=== PATIENT | female | born 1925 | race Caucasian/White ===

== ENCOUNTER 2016-10-05 20:50 | Inpatient (IN) | payer MEDICARE ==
[~2016-10-05] VITALS: Ht 167.6 cm; Wt 59.0 kg
[2016-10-05] MEDS ORDERED: SODIUM CHLOR 0.9% 1000 ML INJ 1,000 ML IV SCH (21:05)
--- NOTE | 2016-10-05 21:11 | PD ---
HPI Chief Complaint: GI bleed Time Seen by Provider: 21:05 Travel History International Travel<30 days: No Contact w/Intl Traveler<30days: No History of Present Illness HPI The patient is an 89 year old female who presents to the [facility] emergency department with a history of GI bleed that she reports began on Tuesday. She reports that she had bleeding on Tuesday, Tuesday, and Tuesday, today she thought that the bleeding had resolved up until this evening when it recurred when she was at a banquet. The patient is currently visiting from out of town. She reports that she's had 2 prior GI bleeds related to diverticulosis. She reports that she last had a colonoscopy within the last year. She reports that she is anticoagulated related to a history of atrial fibrillation. She is on Coumadin 5 mg by mouth daily. She did not take it today per the recommendation of her senior dot net developer when she called regarding GI bleed. She reports that her last INR was done approximately 2 weeks ago and was 1.4. The patient was brought in by ambulance services with reportedly a normal blood pressure, blood glucose was 119 prior to arrival. She denies having any associated abdominal pain. She denies having any nausea or vomiting. The patient reports that there is some stool mixed in with the blood in the stool is formed. On review of systems, the patient denies any recent fevers, cough, congestion, neck pain, chest pain, shortness of breath, urinary symptoms, or neurologic symptoms. [facility] Past Medical History Narrative Medical The patient's past medical history is significant for hypertension, history of GI bleed, history of atrial fibrillation chronically anticoagulated on Coumadin , history of diverticulosis. The patient denies any prior history of peptic ulcer disease. The patient denies any history of hepatitis. 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 Social History Alcohol Use: Yes (occasional) Tobacco Use: No Substance Use: No Allergies-Medications (Allergen,Severity, Reaction): Coded Allergies: No Known Allergies (Unverified , 10/05/16) Reported Meds & Prescriptions Reported Meds & Active Scripts Active Reported Amlodipine (Amlodipine Besylate) 10 Mg Tab 10 Mg PO DAILY Losartan (Losartan Potassium) 25 Mg Tab 25 Mg PO DAILY Coumadin (Warfarin) 5 Mg Tab 5 Mg PO DAILY Review of Systems Except as stated in HPI: all other systems reviewed are Neg General / Constitutional: No: Fever Eyes: No: Visual changes HENT: No: Headaches Cardiovascular: No: Chest Pain or Discomfort Respiratory: No: Shortness of Breath Gastrointestinal: Positive: Diarrhea, Hematochezia, Changes in Bowel Habits, No: Nausea, Vomiting, Abdominal Pain, Hematemesis, Constipation, Indigestion, Loss of Appetite Genitourinary: No: Dysuria Musculoskeletal: No: Pain Skin: No Rash Neurologic: No: Weakness Psychiatric: No: Depression Endocrine: No: Polydipsia Hematologic/Lymphatic: No: Easy Bruising Physical Exam Narrative General: The patient is a well-developed well-nourished female in no acute distress. Head and Neck exam: Head is normocephalic atraumatic. Eyes: EOMI, pupils are equal round and reactive to light. Nose: Midline septum with pink mucous membranes Mouth: Dentition unremarkable. Moist mucus membranes. Posterior oropharynx is not erythematous. No tonsillar hypertrophy. Uvula midline. Airway patent. Neck: No palpable lymphadenopathy. No nuchal rigidity. No thyromegaly. Cardiovascular: Regular rate and rhythm without murmurs, gallops, or rubs. The patient is noted to have an occasional PVC on the monitor, however on telemetry the patient is otherwise noted to be in a sinus rhythm. Lungs: Clear to auscultation bilaterally. No wheezes, rhonchi, or rales. Abdomen: Soft, without tenderness to palpation in all 4 quadrants of the abdomen. No guarding, rebound, or rigidity. No tenderness on palpation of McBurney's point. Negative Pulido sign. Negative Boulder sign. Extremities: No clubbing or cyanosis, however the patient does have trace pedal edema. 2+ pulses in all 4 extremities. No calf tenderness on palpation. Back: No costovertebral angle tenderness to palpation. Neurologic Exam: Grossly nonfocal. Skin Exam: No rash noted. Intact skin that is warm and dry. RECTAL EXAM: No masses or tenderness, stool is bright red. Hemaprompt positive. Data Data Last Documented VS Vital Signs Date Time Temp Pulse Resp B/P Pulse Ox O2 Delivery O2 Flow Rate FiO2 6/27/17 21:27 97 Room Air 10/05/16:17 98.2 85 18 118/69 Orders Complete Blood Count With Diff (10/05/16 21:05) Comprehensive Metabolic Panel (10/05/16 21:05) Lipase (10/05/16 21:05) Prothrombin Time / Inr (Pt) (10/05/16 21:05) Act Partial Throm Time (Ptt) (10/05/16 21:05) Type And Screen (10/05/16 21:05) Red Blood Cells (Rbc) (10/05/16 21:05) Ecg Monitoring (10/05/16 21:05) Iv Access Insert/Monitor (10/05/16 21:05) Oximetry (10/05/16 21:05) Sodium Chlor 0.9% 1000 Ml Inj (Ns 1000 M (10/05/16 21:05) Sodium Chloride 0.9% Flush (Ns Flush) (10/05/16 21:15) Electrocardiogram (10/05/16 22:38) Labs Laboratory Tests Test 10/05/16 22:00 White Blood Count 6.8 TH/MM3 Red Blood Count 3.16 MIL/MM3 Hemoglobin 10.0 GM/DL Hematocrit 29.8 % Mean Corpuscular Volume 94.3 FL Mean Corpuscular Hemoglobin 31.6 PG Mean Corpuscular Hemoglobin 33.5 % Concent Red Cell Distribution Width 15.4 % Platelet Count 179 TH/MM3 Mean Platelet Volume 8.9 FL Neutrophils (%) (Auto) 61.7 % Lymphocytes (%) (Auto) 22.8 % Monocytes (%) (Auto) 9.9 % Eosinophils (%) (Auto) 4.5 % Basophils (%) (Auto) 1.1 % Neutrophils # (Auto) 4.2 TH/MM3 Lymphocytes # (Auto) 1.6 TH/MM3 Monocytes # (Auto) 0.7 TH/MM3 Eosinophils # (Auto) 0.3 TH/MM3 Basophils # (Auto) 0.1 TH/MM3 CBC Comment DIFF FINAL Differential Comment Prothrombin Time 23.0 SEC Prothromb Time International 2.0 RATIO Ratio Activated Partial 33.1 SEC Thromboplast Time Sodium Level 140 MEQ/L Potassium Level 3.6 MEQ/L Chloride Level 107 MEQ/L Carbon Dioxide Level 27.0 MEQ/L Anion Gap 6 MEQ/L Blood Urea Nitrogen 20 MG/DL Creatinine 0.49 MG/DL Estimat Glomerular Filtration 119 ML/MIN Rate Random Glucose 107 MG/DL Calcium Level 8.8 MG/DL Total Bilirubin 0.5 MG/DL Aspartate Amino Transf 18 U/L (AST/SGOT) Alanine Aminotransferase 19 U/L (ALT/SGPT) Alkaline Phosphatase 76 U/L Total Protein 5.7 GM/DL Albumin 3.3 GM/DL Lipase 225 U/L MDM Medical Decision Making Medical Screen Exam Complete: Yes Emergency Medical Condition: Yes Medical Record Reviewed: Yes Differential Diagnosis Diverticular bleed, versus AVM malformation bleed, versus peptic ulcer bleed Narrative Course During the course of the patients emergency department visit, the patients history, examination, and differential diagnosis were reviewed with the patient. The patient had IV access obtained and blood work sent for analysis. The patient was placed on a child monitor with oximetry and blood pressure monitoring. The patient was typed and crossmatched for blood administration if necessary, 2 units were placed on hold. The patient was initially provided normal saline at 125 mL per hour. The patients laboratory studies were reviewed and remarkable for a white count of 6.8, hemoglobin 10, platelets 179 with monocytes 9.9, eosinophils 4.5. CMP is remarkable for a BUN of 20, creatinine 0.49, glucose 107, albumin 3.3, lipase 225, PTT 23, INR 2.0, PTT 33.1. The patients results were discussed with the patient, including the plan of care. I explained that further testing and/ or monitoring is indicated based on the patients history, examination, and/ or laboratory findings. Therefore, I recommended admission for additional evaluation. The patient expressed understanding and was agreeable with this plan. The patient was admitted to the hospital in stable condition and sent to a bed under the care of the [facility] service. [facility] Point of Care Internal Pos. & Neg. Controls: Passed Fecal Specimen Occult Blood: Positive Physician Communication Physician Communication Patient's case will be discussed with Dr. Lutz for admission. Diagnosis Primary Impression: GI bleed Qualified Code: K92.2 - Gastrointestinal hemorrhage, unspecified gastrointestinal hemorrhage type Admitting Information Admitting Physician Requests: Admit Silvia Ward MD Oct 05, 2016 21:11
[2016-10-05] MEDS ORDERED: SODIUM CHLORIDE 0.9% FLUSH 10 ML FLUSH IVF PRN (21:15)
[2016-10-05 21:17] VITALS: BP 118/69; PULSE 85; RESP 18; TEMP 98.2; O2SAT 97
[2016-10-05 21:27] VITALS: O2SAT 97
[2016-10-05] MEDS ORDERED: AMLO10TA2 PO (21:35)
[2016-10-05] MEDS ORDERED: LOSA25TA PO (21:35)
[2016-10-05] MEDS ORDERED: COUM5TAB PO (21:35)
[2016-10-05 22:12] LABS: AUTOMATED NEUTROPHIL # 4.2 TH/MM3 (1.8-7.7); BASOPHIL # 0.1 TH/MM3 (0-0.2); BASOPHIL % 1.1 % (0.0-2.0); EOSINOPHIL # 0.3 TH/MM3 (0-0.4); EOSINOPHIL % 4.5 % (0.0-4.0); HEMATOCRIT 29.8 % (35.0-46.0); HEMO FLAGS DIFF FINAL; LYMPH % 22.8 % (9.0-44.0); LYMPHOCYTE # 1.6 TH/MM3 (1.0-4.8); MEAN CELL VOLUME 94.3 FL (80.0-100.0); MEAN CORPUSCULAR HEMOGLOBIN 31.6 PG (27.0-34.0); MEAN CORPUSCULAR HGB CONC 33.5 % (32.0-36.0); MONO % 9.9 % (0.0-8.0); NEUT % 61.7 % (16.0-70.0); PLATELET COUNT 179 TH/MM3 (150-450); RED BLOOD COUNT 3.16 MIL/MM3 (4.00-5.30); RED CELL DISTRIBUTION WIDTH 15.4 % (11.6-17.2); WHITE BLOOD COUNT 6.8 TH/MM3 (4.0-11.0)
[2016-10-05 22:26] LABS: ANION GAP 6 MEQ/L (5-15); AST (GOT) 18 U/L (15-37); BLOOD UREA NITROGEN 20 MG/DL (7-18); CHLORIDE 107 MEQ/L (98-107); GLOMERULAR FILTRATION RATE 119 ML/MIN (>89); POTASSIUM 3.6 MEQ/L (3.5-5.1); SODIUM (NA) 140 MEQ/L (136-145)
[2016-10-05 22:27] LABS: ALT (GPT) 19 U/L (10-53)
[2016-10-05 22:29] LABS: ALKALINE PHOSPHATASE 76 U/L (45-117); TOTAL BILIRUBIN ADULT 0.5 MG/DL (0.2-1.0)
[2016-10-05 22:33] LABS: APTT (PATIENT) 33.1 SEC (24.3-30.1)
[2016-10-05] MEDS ORDERED: SODIUM CHLORIDE 0.9% FLUSH 10 ML FLUSH IV FLUSH PRN (23:15)
[2016-10-05] MEDS ORDERED: NALOXONE HCL 0.4 MG/ML AMP IV PRN (23:15)
[2016-10-05 23:25] VITALS: BP 144/82; PULSE 81; RESP 18; O2SAT 93
[2016-10-06] VITALS (11 sets, daily range): BP systolic 98–145; BP diastolic 53–82; PULSE 73–92; RESP 14–20; TEMP 97.4–98.4; O2SAT 96–99
--- NOTE | 2016-10-06 04:06 | HHI.HP ---
[facility] Service [facility] Primary Care Physician No Primary Care Physician Admission Diagnosis GI bleed Diagnoses: Chief Complaint: rectal bleeding Travel History International Travel<30 Days: No Contact w/Intl Traveler <30 Da: No Traveled to Known Affected Are: No History of Present Illness Written by Alyx Aragon, acting as scribe for Dr. Lutz on 10/06/16 at 04:02. Here from [place] to be inducted into the [employer] [facility]. Has had rectal bleeding since Tuesday - multiple episodes Tuesday and Tuesday but it seemed to resolve Tuesday morning. Flew in Tuesday night and was doing well on Thursday 10/05 until she went to an [employer] banquet- when she stood up, her grandson noticed she had bled all over her skirt and the soaked the upholstery of the chair she was sitting on- a very large amount of dark and thick red blood. She is anticoagulated with Coumadin for atrial fibrillation with INR of 2.0 in ED. The last time she had similar bleeding was due to diverticular bleed. Not sure how bleeding was stopped. She has had three episodes of this. Has had bleeding on Xarelto, Eliquis, and Coumadin which is given for atrial fibrillation. The patient also has a PPM. She had some dizziness but no other symptoms other than the bleeding. . Review of Systems Except as stated in HPI: all other systems reviewed are Neg Past Family Social History Past Medical History Hypertension Osteomyelitis of left jaw in childhood Denies diabetes, copd/emphysema, CHF, CAD, liver problems, kidney problems, DVT , PE, CVA, seizures, thyroid problems, or cancers . Past Surgical History Permanent pacemaker placement Bilateral knee replacement Umbilical hernia repair Appendectomy Hysterectomy Bilateral carpal tunnel release Cardiac ablation for afib . Reported Medications Reported Meds & Active Scripts Active Reported Amlodipine (Amlodipine Besylate) 10 Mg Tab 10 Mg PO DAILY Losartan (Losartan Potassium) 25 Mg Tab 25 Mg PO DAILY Coumadin (Warfarin) 5 Mg Tab 5 Mg PO DAILY . Allergies: Coded Allergies: No Known Allergies (Unverified , 10/05/16) Active Ordered Medications Current Medications Sodium Chloride (NS 1000 ml Inj) 1,000 ml @ 125 mls/hr Q8H IV Last administered on 10/05/16 22:05; Start 10/05/16 at 21:05; Stop 10/06/16 at 05:04 Sodium Chloride (NS Flush) 2 ml UNSCH PRN IVF FLUSH AFTER USING IV ACCESS Last administered on 10/05/16 22:05; Start 10/05/16 at 21:15; Stop 10/05/16 at 23:16 ; Status DC Sodium Chloride (NS Flush) 2 ml UNSCH PRN IV FLUSH FLUSH AFTER USING IV ACCESS ; Start 10/05/16 at 23:15 Sodium Chloride (NS Flush) 2 ml BID IV FLUSH ; Start 10/06/16 at 09:00 Naloxone HCl (Narcan Inj) 0.4 mg UNSCH PRN IV SEE LABEL COMMENTS; Start at 23:15 . Family History Father lived to 97, healthy Mother without health problems . Social History Tobacco: remote history of smoking Alcohol: social occasional use Illicit Drugs: denies . Physical Exam Vital Signs Vital Signs Date Time Temp Pulse Resp B/P Pulse Ox O2 Delivery O2 Flow Rate FiO2 10/06/16 01:45 Room Air 10/06/16 01:40 88 10/06/16 00:32 79 10/06/16 00:05 97.6 92 16 145/82 99 10/05/16 23:25 81 18 144/82 93 Room Air 10/05/16 21:27 97 Room Air 10/05/16 21:17 98.2 85 18 118/69 97 Physical Exam GENERAL: This is a well-nourished, well-developed cognitively sharp 89-year-old female patient, in no apparent distress. SKIN: No rashes or lesions. Cool and dry. Superficial ecchymosis noted on right wrist. HEAD: Atraumatic. Normocephalic. EYES: No scleral icterus. No injection or drainage. ENT: Nose without bleeding, purulent drainage. NECK: Trachea midline. No JVD or lymphadenopathy. CARDIOVASCULAR: Regular rate and rhythm without murmurs, gallops, or rubs. RESPIRATORY: Clear to auscultation. Breath sounds equal bilaterally. No wheezes , rales, or rhonchi. GASTROINTESTINAL: Abdomen soft, non-tender, nondistended. No guarding. MUSCULOSKELETAL: Extremities without clubbing, cyanosis, or edema. No calf tenderness. NEUROLOGICAL: Awake and alert. Motor and sensory grossly within normal limits. Normal speech. . Laboratory Laboratory Tests Test 10/05/16 22:00 White Blood Count 6.8 Red Blood Count 3.16 Hemoglobin 10.0 Hematocrit 29.8 Mean Corpuscular Volume 94.3 Mean Corpuscular Hemoglobin 31.6 Mean Corpuscular Hemoglobin 33.5 Concent Red Cell Distribution Width 15.4 Platelet Count 179 Mean Platelet Volume 8.9 Neutrophils (%) (Auto) 61.7 Lymphocytes (%) (Auto) 22.8 Monocytes (%) (Auto) 9.9 Eosinophils (%) (Auto) 4.5 Basophils (%) (Auto) 1.1 Neutrophils # (Auto) 4.2 Lymphocytes # (Auto) 1.6 Monocytes # (Auto) 0.7 Eosinophils # (Auto) 0.3 Basophils # (Auto) 0.1 CBC Comment DIFF FINAL Differential Comment Prothrombin Time 23.0 Prothromb Time International 2.0 Ratio Activated Partial 33.1 Thromboplast Time Sodium Level 140 Potassium Level 3.6 Chloride Level 107 Carbon Dioxide Level 27.0 Anion Gap 6 Blood Urea Nitrogen 20 Creatinine 0.49 Estimat Glomerular Filtration 119 Rate Random Glucose 107 Calcium Level 8.8 Total Bilirubin 0.5 Aspartate Amino Transf 18 (AST/SGOT) Alanine Aminotransferase 19 (ALT/SGPT) Alkaline Phosphatase 76 Total Protein 5.7 Albumin 3.3 Lipase 225 Blood Type O POSITIVE Antibody Screen NEGATIVE Crossmatch Leukocyte-Reduced Red Blood Cells Blood Bank Comment Result Diagram: 10/05/16219910/05/162199 Assessment and Plan Problem List: (1) GI bleed ICD Code: K92.2 Status: Acute Assessment and Plan GI bleed - consult gastroenterology - NPO for GI procedures - Hgb 10.0, HCT 29.8 - states her home research advisor told her to stop coumadin and he'd see her upon return to [place] - closely monitor H&H - transfuse if indicated - continuous cardiac telemetry to monitor for arrhythmia - monitor vital signs q4h DVT prophylaxis - SCDs Patient supposed to fly home 10/07 . Discussed Condition With ER physician, RN, and patient Physician Certification 2 Midnight Certification Type: Admission for Inpatient Services Order for Inpatient Services The services are ordered in accordance with Medicare regulations or non- Medicare payer requirements, as applicable. In the case of services not specified as inpatient-only, they are appropriately provided as inpatient services in accordance with the 2-midnight benchmark. Estimated LOS (days): 3 days is the estimated time the patient will need to remain in the hospital, assuming treatment plan goals are met and no additional complications. Post-Hospital Plan: Home Problem Qualifiers (1) GI bleed: Qualified Code: K92.2 - Gastrointestinal hemorrhage, unspecified gastrointestinal hemorrhage type Alyx Aragon Oct 06, 2016 04:06
[2016-10-06 04:54] LABS: AUTOMATED NEUTROPHIL # 2.8 TH/MM3 (1.8-7.7); BASOPHIL # 0.1 TH/MM3 (0-0.2); BASOPHIL % 0.9 % (0.0-2.0); EOSINOPHIL # 0.5 TH/MM3 (0-0.4); EOSINOPHIL % 7.5 % (0.0-4.0); HEMATOCRIT 26.8 % (35.0-46.0); HEMO FLAGS DIFF FINAL; LYMPH % 34.4 % (9.0-44.0); LYMPHOCYTE # 2.1 TH/MM3 (1.0-4.8); MEAN CELL VOLUME 94.6 FL (80.0-100.0); MEAN CORPUSCULAR HEMOGLOBIN 31.7 PG (27.0-34.0); MEAN CORPUSCULAR HGB CONC 33.5 % (32.0-36.0); NEUT % 45.2 % (16.0-70.0); PLATELET COUNT 154 TH/MM3 (150-450); RED BLOOD COUNT 2.83 MIL/MM3 (4.00-5.30); RED CELL DISTRIBUTION WIDTH 15.2 % (11.6-17.2); WHITE BLOOD COUNT 6.2 TH/MM3 (4.0-11.0)
[2016-10-06 05:22] LABS: BICARBONATE 26.9 MEQ/L (21.0-32.0); POTASSIUM 4.1 MEQ/L (3.5-5.1)
[2016-10-06] MEDS: SODIUM CHLORIDE 0.9% FLUSH 10 ML FLUSH IV FLUSH SCH ×2 (09:00→20:17)
--- NOTE | 2016-10-06 10:23 | HHI.PR ---
Subjective Remarks Follow up for GI bleeding. The patient reports continued multiple episodes of dark red rectal bleeding overnight associated with flatus but no stools. Denies any abdominal pain, nausea/vomiting, or fevers/chills. She complains of some mild low back pain from the hospital bed. She states she has chronic low back pain at baseline however slightly worse this morning. Otherwise she has no other medical complaints including no lightheadedness, dizziness, chest pain, palpitations, or shortness of breath. She is requesting ice chips. Objective Vitals Vital Signs Date Time Temp Pulse Resp B/P Pulse Ox O2 Delivery O2 Flow Rate FiO2 10/06/16 06:19 Room Air 10/06/16 04:17 97.5 79 16 143/67 99 10/06/16 01:45 Room Air 10/06/16 01:40 88 10/06/16 00:32 79 10/06/16 00:05 97.6 92 16 145/82 99 10/05/16 23:25 81 18 144/82 93 Room Air 10/05/16 21:27 97 Room Air 10/05/16 21:17 98.2 85 18 118/69 97 I/O 10/05/16 10/05/16 10/05/16 10/06/16 10/06/16 10/06/16 07:00 15:00 23:00 07:00 15:00 23:00 Intake Total 982 ml Balance 982 ml Intake Oral 0 ml IV Total 982 ml # Voids 4 # Bowel Movements 1 Result Diagram: 10/06/16 0435 10/06/16 0435 Objective Remarks GENERAL: Well-developed well-nourished elderly female patient in [facility]. SKIN: Warm and dry. HEENT: Atraumatic. Normocephalic. Pupils equal and round. Mucous membranes pink and moist. NECK: Trachea midline. CARDIOVASCULAR: Regular rate and rhythm. No murmur appreciated. RESPIRATORY: No accessory muscle use. Clear to auscultation. Breath sounds equal bilaterally. GASTROINTESTINAL: Abdomen soft, non-tender, nondistended. Hepatic and splenic margins not palpable. MUSCULOSKELETAL: Extremities without clubbing, cyanosis, or edema. No obvious deformities. NEUROLOGICAL: Awake and alert. No obvious cranial nerve deficits. Motor grossly within normal limits. Normal speech. PSYCHIATRIC: Appropriate mood and affect; insight and judgment normal. Medications and IVs Current Medications Medications (Trade) Dose Ordered Sig/Jeffry Route Start Time Stop Time Status Last Admin (NS Flush) 2 ml UNSCH PRN IV FLUSH 10/05/16 23:15 (NS Flush) 2 ml BID IV FLUSH 10/06/16 09:00 10/06/16 09:00 (Narcan Inj) 0.4 mg UNSCH PRN IV 10/05/16 23:15 A/P Problem List: (1) GI bleed ICD Code: K92.2 Status: Acute Assessment and Plan 89-year-old female with history of hypertension, atrial fibrillation s/p pacer on Coumadin, prior diverticular GI bleed on anticoagulation, presents with a 4day history of rectal bleeding. The patient is visiting from [place] for a ceremony to be inducted into the [employer] of [facility], she is supposed to return to [place] on 10/07. GI bleed: on anticoagulation with Coumadin - she already discussed with her home numerical control tool programmer who instructed her to stop coumadin and he'd see her upon return to [place] - consulted gastroenterology - NPO for possible upcoming procedures - Hgb 10.0 --> 9.0 overnight - closely monitor serial H&H q6h - transfuse if Hgb < 8 or continues to have significant active bleeding - monitor on telemetry - start on IV protonix and IVF hydration - 1330hrs: hemoglobin dropped to 8.2 with continued active bleeding, will give 1u pRBC transfusion now, continue to monitor H&H Hypertension: BP fairly well controlled - hold patient's antihypertensives (losartan and amlodipine) with active GI bleeding - IV Vasotec prn SBP > 160, DBP > 100 Atrial Fibrillation on Coumadin: INR 2.0 - holding patient's coumadin with GI bleeding as above - patient has been instructed by her numerical control tool programmer to stop Coumadin until he sees her - monitor INR DVT prophylaxis- SCDs Problem Qualifiers (1) GI bleed: Qualified Code: K92.2 - Gastrointestinal hemorrhage, unspecified gastrointestinal hemorrhage type Alexandria Thornton PA-C Oct 06, 2016 10:23 am
[2016-10-06] MEDS: SODIUM CHLOR 0.9% 1000 ML INJ 1,000 ML IV SCH ×2 (10:30→22:25)
[2016-10-06] MEDS ORDERED: ENALAPRILAT 1.25 MG/ML VIAL IV PUSH PRN (10:30)
[2016-10-06] MEDS ORDERED: ONDANSETRON HCL 4 MG/2 ML VIAL IVP PRN (10:30)
[2016-10-06] MEDS ORDERED: ACETAMINOPHEN 325 MG TAB PO PRN (10:30)
[2016-10-06] MEDS: MORPHINE SULFATE 4 MG/ML INJ IV PRN ×2 (11:39→20:17)
[2016-10-06] MEDS: PANTOPRAZOLE SODIUM 40 MG VIAL IV PUSH SCH (12:09)
[2016-10-06 12:16] LABS: HEMATOCRIT 24.7 % (35.0-46.0); REVIEW FLAG FINAL
[2016-10-06] MEDS ORDERED: SODIUM CHLOR 0.9% 250 ML INJ 250 ML IV ONE (13:30)
--- NOTE | 2016-10-06 14:09 | PD.CONS ---
HPI History of Present Illness This is a 89 year old female patient with a history of diverticular bleeds who presented to the ER for evaluation of rectal bleeding. She is visiting from [place] to be inducted into the [employer]. She reports that she has had about 3-4 episodes of diverticular bleeds in the past. Usually, these occur about every 2 years, but her last episode was about 1 year ago. She had a colonoscopy at that time and was told that her bleeding was a diverticular bleed. She began passing a small to moderate amount of rectal bleeding with dark red blood and clots on Tuesday. She had several episodes on Tuesday and Tuesday, but thought it was under control and therefore went ahead and flew into town on Tuesday. She reports that she has been having intermittent rectal bleeding, independent from stool since that time. Last night , she and her family were at a banquet and when she stood up to go to another table, her grandson noticed that she had a large amount of dark red blood that soiled her clothes and the chair she was sitting on. She went to the restroom and passed a large amount of red blood with some clots. She was brought to the ER and has continued to have frequent episodes of passing moderate amount of red blood. She has some generalized weakness, but no dizziness or syncopal episodes. She denies any nausea/vomiting, hematemesis, abdominal pain, constipation, or melena. She does have a history of atrial fibrillation and takes Coumadin at home, but this is now on hold. She also occasionally takes Aleve for arthritic pain. She would like to try to avoid a colonoscopy if possible. 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 Diverticulosis Hx atrial fibrillation Hx diverticular bleeds Past Surgical History Permanent pacemaker placement Bilateral knee replacement Umbilical hernia repair Appendectomy Hysterectomy Bilateral carpal tunnel release Cardiac ablation for afib Multiple colonoscopies Coded Allergies: No Known Allergies (Unverified , 10/05/16) Medications Allergies Coded Allergies Type Severity Reaction Last Updated Verified No Known Allergies 10/05/16 No Active Scripts Medications Dose Route/Sig Days Date Category Amlodipine (Amlodipine Besylate) 10 Mg Tab 10 Mg PO DAILY 10/05/16 Reported Losartan (Losartan Potassium) 25 Mg Tab 25 Mg PO DAILY 10/05/16 Reported Coumadin (Warfarin) 5 Mg Tab 5 Mg PO DAILY 10/05/16 Reported Family History Father lived to , healthy Mother without health problems Social History Remote history of smoking Occasional ETOH use. Review of Systems Constitutional: COMPLAINS OF: Fatigue, DENIES: Weight loss, Chills, Dizziness , Change in appetite Respiratory: DENIES: Cough Cardiovascular: DENIES: Chest pain Gastrointestinal: COMPLAINS OF: Bloody stools (rectal bleeding), DENIES: Abdominal pain, Black stools, Nausea, Vomiting, Swelling of Abdomen, Heartburn Musculoskeletal: COMPLAINS OF: Joint pain, DENIES: Back pain Hematologic/lymphatic: COMPLAINS OF: Bruising Neurologic: DENIES: Headache Psychiatric: DENIES: Confusion GI Exam Vitals I&O Vital Signs Date Time Temp Pulse Resp B/P Pulse Ox O2 Delivery O2 Flow Rate FiO2 10/06/16 09:00 78 10/06/16 08:00 98.0 73 20 116/59 98 10/06/16 06:19 Room Air 10/06/16 04:17 97.5 79 16 143/67 99 10/06/16 01:45 Room Air 10/06/16 01:40 88 10/06/16 00:32 79 10/06/16 00:05 97.6 92 16 145/82 99 10/05/16 23:25 81 18 144/82 93 Room Air 10/05/16 21:27 97 Room Air 10/05/16 21:17 98.2 85 18 118/69 97 I/O 10/05/16 10/05/16 10/05/16 10/06/16 10/06/16 10/06/16 07:00 15:00 23:00 07:00 15:00 23:00 Intake Total 982 ml Balance 982 ml Intake Oral 0 ml IV Total 982 ml # Voids 4 # Bowel Movements 1 Imaging Allergies Coded Allergies Type Severity Reaction Last Updated Verified No Known Allergies 10/05/16 No Active Scripts Medications Dose Route/Sig Days Date Category Amlodipine (Amlodipine Besylate) 10 Mg Tab 10 Mg PO DAILY 10/05/16 Reported Losartan (Losartan Potassium) 25 Mg Tab 25 Mg PO DAILY 10/05/16 Reported Coumadin (Warfarin) 5 Mg Tab 5 Mg PO DAILY 10/05/16 Reported Laboratory Test 10/05/16 10/05/16 10/06/16 10/06/16 21:47 22:00 04:35 11:14 Blood Type O POSITIVE O POSITIVE White Blood Count 6.8 TH/MM3 6.2 TH/MM3 Red Blood Count 3.16 MIL/MM3 2.83 MIL/MM3 Hemoglobin 10.0 GM/DL 9.0 GM/DL 8.2 GM/DL Hematocrit 29.8 % 26.8 % 24.7 % Mean Corpuscular Volume 94.3 FL 94.6 FL Mean Corpuscular Hemoglobin 31.6 PG 31.7 PG Mean Corpuscular Hemoglobin 33.5 % 33.5 % Concent Red Cell Distribution Width 15.4 % 15.2 % Platelet Count 179 TH/MM3 154 TH/MM3 Mean Platelet Volume 8.9 FL 8.4 FL Neutrophils (%) (Auto) 61.7 % 45.2 % Lymphocytes (%) (Auto) 22.8 % 34.4 % Monocytes (%) (Auto) 9.9 % 12.0 % Eosinophils (%) (Auto) 4.5 % 7.5 % Basophils (%) (Auto) 1.1 % 0.9 % Neutrophils # (Auto) 4.2 TH/MM3 2.8 TH/MM3 Lymphocytes # (Auto) 1.6 TH/MM3 2.1 TH/MM3 Monocytes # (Auto) 0.7 TH/MM3 0.7 TH/MM3 Eosinophils # (Auto) 0.3 TH/MM3 0.5 TH/MM3 Basophils # (Auto) 0.1 TH/MM3 0.1 TH/MM3 CBC Comment DIFF FINAL DIFF FINAL Differential Comment Prothrombin Time 23.0 SEC Prothromb Time International 2.0 RATIO Ratio Activated Partial 33.1 SEC Thromboplast Time Sodium Level 140 MEQ/L 146 MEQ/L Potassium Level 3.6 MEQ/L 4.1 MEQ/L Chloride Level 107 MEQ/L 112 MEQ/L Carbon Dioxide Level 27.0 MEQ/L 26.9 MEQ/L Anion Gap 6 MEQ/L 7 MEQ/L Blood Urea Nitrogen 20 MG/DL 16 MG/DL Creatinine 0.49 MG/DL 0.46 MG/DL Estimat Glomerular Filtration 119 ML/MIN 128 ML/MIN Rate Random Glucose 107 MG/DL 97 MG/DL Calcium Level 8.8 MG/DL 8.5 MG/DL Total Bilirubin 0.5 MG/DL Aspartate Amino Transf 18 U/L (AST/SGOT) Alanine Aminotransferase 19 U/L (ALT/SGPT) Alkaline Phosphatase 76 U/L Total Protein 5.7 GM/DL Albumin 3.3 GM/DL Lipase 225 U/L Antibody Screen NEGATIVE Crossmatch Leukocyte-Reduced Red Blood Cells Blood Bank Comment Physical Examination HEENT: Normocephalic; atraumatic; no jaundice. CHEST: CTA CARDIAC: RRR ABDOMEN: Soft, mildly bloated, nontender; no hepatosplenomegaly; bowel sounds are present in all four quadrants. EXTREMITIES: No clubbing, cyanosis, or edema. 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 Assessment and Plan Plan ASSESSMENT: - Rectal bleeding, likely diverticular. Pt visiting from [place] to be inducted into the [employer]. She has a hx of diverticular bleeding about 4-5 times in the past, usually about once every 2 years, last episode was 1 year ago. She had a colonoscopy one year ago and reports this revealed diverticulosis, no polyps and she was told that her rectal bleeding was a diverticular bleed. She started having rectal bleeding on Tuesday and has had intermittent bleeding since that time. She had a large amount of red blood with blood clots independent from stool yesterday. No n/v, no abdominal pain. She has had several episodes today, whenever she goes to the bathroom. She would like to try to avoid a colonoscopy if possible. She does have a history of atrial fibrillation and takes Coumadin at home, but this is now on hold. She also occasionally takes Aleve for arthritic pain. She would like to try to avoid a colonoscopy if possible. HH went from 10.0/29.8---> 8.2/24.7. This is most likely diverticular. We will give Miralax to flush stool/blood. If bleeding subsides after this and HH stabilizes, then we will hold on colonoscopy. If she continues to have rectal bleeding after this and/or her HH continues to drop after transfusion, then we will pursue colonoscopy. Okay for clear liquids today. - Anemia secondary to blood loss. HH went from 10.0/29.8---> 8.2/24.7. PRBC ordered - Hx atrial fibrillation, s/p ablation, on coumadin- currently being hold. INR 2.0. - HTN per attending. PLAN: - Clear liquids - Miralax 17 gram packets x 15 mixed in 2L of gatorade - Agree with transfusion - Monitor HH - Transfuse as needed - Hold coumadin - Possible colonoscopy tomorrow if she continues to have bleeding after Miralax and/or HH continues to drop. Pt would like to try to avoid - Pt seen and examined by Dr. Leonard and myself and this note is written on his behalf Poonam García Oct 06, 2016 14:09
[2016-10-06] MEDS ORDERED: POLYETHYLENE GLYCOL 17 GM PKG PO ONE (14:30)
[2016-10-06] MEDS: ACETAMINOPHEN/HYDROcodone 325 MG/5 MG TAB PO PRN ×2 (14:38→23:07)
[2016-10-06 17:54] LABS: HEMATOCRIT 24.5 % (35.0-46.0); REVIEW FLAG FINAL
--- NOTE | 2016-10-06 23:17 | EKG ---
Date Performed: 10/05/2016 Time Performed: 22:57:41 PTAGE: 89 years EKG: Sinus rhythm INCOMPLETE RIGHT BUNDLE BRANCH BLOCK BORDERLINE ECG NO PREVIOUS TRACING DOCTOR: Nikia Kessler Interpretating Date/Time 10/06/2016 23:15:05
[2016-10-06 23:20] LABS: REVIEW FLAG FINAL
[2016-10-07] MEDS: MORPHINE SULFATE 4 MG/ML INJ IV PRN ×2 (01:23→04:36)
[2016-10-07 03:37] LABS: MEAN CELL VOLUME 94.6 FL (80.0-100.0); MEAN CORPUSCULAR HEMOGLOBIN 31.8 PG (27.0-34.0); MEAN CORPUSCULAR HGB CONC 33.7 % (32.0-36.0); PLATELET COUNT 136 TH/MM3 (150-450); RED BLOOD COUNT 2.64 MIL/MM3 (4.00-5.30); RED CELL DISTRIBUTION WIDTH 14.9 % (11.6-17.2); REVIEW FLAG FINAL; WHITE BLOOD COUNT 6.1 TH/MM3 (4.0-11.0)
[2016-10-07 03:51] LABS: BICARBONATE 27.4 MEQ/L (21.0-32.0); POTASSIUM 3.3 MEQ/L (3.5-5.1)
[2016-10-07 04:00] VITALS: BP 112/53; PULSE 77; RESP 18; TEMP 97.8; O2SAT 96
[2016-10-07 04:00] LABS: INTERNATIONAL NORMALIZED RATIO 1.5 RATIO; PROTHROMBIN TIME - PATIENT 16.9 SEC (9.8-11.6)
[2016-10-07] MEDS: ACETAMINOPHEN/HYDROcodone 325 MG/5 MG TAB PO PRN (05:49)
[2016-10-07 08:00] VITALS: BP 113/59; PULSE 79; RESP 22; TEMP 97.8; O2SAT 94
[2016-10-07] MEDS ORDERED: POTASSIUM CHLORIDE 10 MEQ CONTROLLED RELEASE TAB PO ONE (08:15)
[2016-10-07 08:54] VITALS: PULSE 78
[2016-10-07] MEDS: SODIUM CHLORIDE 0.9% FLUSH 10 ML FLUSH IV FLUSH SCH ×2 (09:00→21:00)
[2016-10-07] MEDS: PANTOPRAZOLE SODIUM 40 MG VIAL IV PUSH SCH (10:16)
[2016-10-07] MEDS: SODIUM CHLOR 0.9% 1000 ML INJ 1,000 ML IV SCH ×2 (10:20→22:15)
[2016-10-07] MEDS ORDERED: META28.34 PO (11:17)
[2016-10-07 12:00] VITALS: BP 107/56; PULSE 80; RESP 20; TEMP 97.7; O2SAT 98
[2016-10-07 12:34] LABS: HEMATOCRIT 26.4 % (35.0-46.0); REVIEW FLAG FINAL
--- NOTE | 2016-10-07 13:48 | HHI.GIFU ---
Subjective Remarks Resting in bed. Feeling good. Multiple bowel movements yesterday, but states the bleeding subsided. She has not had any further bleeding. She reports that she is going home later today. No n/v. No abdominal pain. Objective Vitals I&O Vital Signs Date Time Temp Pulse Resp B/P Pulse Ox O2 Delivery O2 Flow Rate FiO2 10/07/16 12:00 97.7 80 20 107/56 98 10/07/16 08:54 78 10/07/16 08:00 97.8 79 22 113/59 94 10/07/16 04:26 Room Air 10/07/16 04:00 97.8 77 18 112/53 96 10/06/16 23:47 Room Air 10/06/16 20:00 Room Air 10/06/16 20:00 97.4 85 18 121/58 98 10/06/16 15:45 98.4 88 14 98/56 98 10/06/16 15:30 98.0 81 14 112/56 97 I/O 10/06/16 10/06/16 10/06/16 10/07/16 10/07/16 10/07/16 07:00 15:00 23:00 07:00 15:00 23:00 Intake Total 982 ml 1335 ml 1162 ml 650 ml Output Total 300 ml Balance 982 ml 1035 ml 1162 ml 650 ml Intake Oral 0 ml 240 ml 240 ml 0 ml IV Total 982 ml 1095 ml 622 ml 650 ml Packed Cells 300 ml Output Urine Total 300 ml # Voids 4 2 2 1 # Bowel Movements 1 3 5 2 Laboratory Laboratory Tests Test 10/06/16 10/06/16 10/07/16 10/07/16 16:52 22:57 03:07 11:39 Hemoglobin 7.9 8.6 8.4 8.8 Hematocrit 24.5 25.0 25.0 26.4 White Blood Count 6.1 Red Blood Count 2.64 Mean Corpuscular Volume 94.6 Mean Corpuscular Hemoglobin 31.8 Mean Corpuscular Hemoglobin 33.7 Concent Red Cell Distribution Width 14.9 Platelet Count 136 Mean Platelet Volume 8.8 Prothrombin Time 16.9 Prothromb Time International 1.5 Ratio Sodium Level 147 Potassium Level 3.3 Chloride Level 114 Carbon Dioxide Level 27.4 Anion Gap 6 Blood Urea Nitrogen 8 Creatinine 0.39 Estimat Glomerular Filtration 155 Rate Random Glucose 83 Calcium Level 7.8 Physical Exam HEENT: Normocephalic; atraumatic; no jaundice CHEST: CTA CARDIAC: RRR. ABDOMEN: Soft, nondistended, nontender; no hepatosplenomegaly; bowel sounds are present in all four quadrants. EXTREMITIES: No clubbing, cyanosis, or edema. SKIN: Normal; no rash; no jaundice. TABLE FILLER: No focal deficits; alert and oriented times three. Assessment and Plan Plan ASSESSMENT: - Rectal bleeding, likely diverticular. Pt visiting from [place] to be inducted into the [employer]. She has a hx of diverticular bleeding about 4-5 times in the past, usually about once every 2 years, last episode was 1 year ago. She had a colonoscopy one year ago and reports this revealed diverticulosis, no polyps and she was told that her rectal bleeding was a diverticular bleed. She started having rectal bleeding on Tuesday and has had intermittent bleeding since that time. She had a large amount of red blood with blood clots independent from stool yesterday. No n/v, no abdominal pain. She has had several episodes today, whenever she goes to the bathroom. She would like to try to avoid a colonoscopy if possible. She does have a history of atrial fibrillation and takes Coumadin at home, but this is now on hold. She also occasionally takes Aleve for arthritic pain. She would like to try to avoid a colonoscopy if possible. S/P Miralax yesterday- multiple bowel movements yesterday, although the bleeding subsided. She has not had any further episodes. She reports that she is glad because she did not want to have a colonoscopy. - Anemia secondary to blood loss. S/P PRBC. 8.4/25.0. - Hx atrial fibrillation, s/p ablation, on coumadin- currently being hold. Pt contacted her drug and alcohol counselor in [place] and he told her not to go back on the coumadin, that he was keeping her off of it. - HTN per attending. PLAN: - Okay to d/c home from GI standpoint - JAMAL - Avoid NSAIDs - FU GI back home, notify GI of hospitalization for diverticular bleeding once she arrives back home (states she is trying to get a flight for tomorrow) - Pt seen and examined by Dr. Leonadr and myself and this note is written on his behalf Poonam García Oct 07, 2016 13:48
--- NOTE | 2016-10-07 15:50 | HHI.PR ---
Subjective Remarks Patient reports mild GI bleed remains. Hemoglobin appears to stabilize through today. She would like to be monitored through tomorrow, to ensure no worsening. Hemoglobin remained stable and bleed tapers or remains stable at low -volume, the patient will be discharged tomorrow morning. Objective Vital Signs Date Time Temp Pulse Resp B/P Pulse Ox O2 Delivery O2 Flow Rate FiO2 10/07/16 12:00 97.7 80 20 107/56 98 10/07/16 08:54 78 10/07/16 08:00 97.8 79 22 113/59 94 10/07/16 04:26 Room Air 10/07/16 04:00 97.8 77 18 112/53 96 10/06/16 23:47 Room Air 10/06/16 20:00 Room Air 10/06/16 20:00 97.4 85 18 121/58 98 I/O 10/06/16 10/06/16 10/06/16 10/07/16 10/07/16 10/07/16 07:00 15:00 23:00 07:00 15:00 23:00 Intake Total 982 ml 1335 ml 1162 ml 650 ml 360 ml Output Total 300 ml Balance 982 ml 1035 ml 1162 ml 650 ml 360 ml Intake Oral 0 ml 240 ml 240 ml 0 ml 360 ml IV Total 982 ml 1095 ml 622 ml 650 ml Packed Cells 300 ml Output Urine Total 300 ml # Voids 4 2 2 1 5 # Bowel Movements 1 3 5 2 2 Result Diagram: 10/07/16 1139 10/07/16 0307 Objective Remarks GENERAL: NAD, A&Ox3 HEAD: Normocephalic. NECK: Supple, trachea midline. No lymphadenopathy. EYES: No scleral icterus. No injection or drainage. CARDIOVASCULAR: Regular rate and rhythm without murmurs, gallops, or rubs. RESPIRATORY: Breath sounds equal bilaterally. No accessory muscle use. GASTROINTESTINAL: Abdomen soft, non-tender, nondistended. MUSCULOSKELETAL: No cyanosis, or edema. SKIN: Warm and dry. NEURO: No focal neurological deficitis. A/P Problem List: (1) GI bleed ICD Code: K92.2 Assessment and Plan Assessment and Plan 89-year-old female admitted for GI bleed, secondary to. Hypertension and atrial fibrillation have remained stable. GI bleed Transfuse 1 unit packed red blood cells while here Coumadin. Workup shows bleed is decreasing Follow hemoglobin through tomorrow morning Stable through tomorrow will discharge tomorrow. Hypertension Currently well controlled Follow blood pressures Resume losartan and amlodipine at discharge Atrial fibrillation Coumadin on hold secondary to GI bleed Patient will have procedure to attempt and stop her atrial fibrillation, and [place], rather than resume Coumadin Patient has spoke with her cigar tobacco rehandler in [place] about this No need to follow INR further DVT prophylaxis SCDs Problem Qualifiers (1) GI bleed: Qualified Code: K92.2 - Gastrointestinal hemorrhage, unspecified gastrointestinal hemorrhage type Tobias Mcgowan MD Oct 07, 2016 15:50
[2016-10-07 16:00] VITALS: BP 146/63; PULSE 80; RESP 20; TEMP 97.2; O2SAT 95
[2016-10-07 18:45] LABS: HEMATOCRIT 24.7 % (35.0-46.0); REVIEW FLAG FINAL
[2016-10-07 20:00] VITALS: BP 129/67; PULSE 84; RESP 16; TEMP 98.1; O2SAT 97
[2016-10-08] VITALS (11 sets, daily range): BP systolic 112–157; BP diastolic 55–70; PULSE 66–90; RESP 18–20; TEMP 97.2–98.6; O2SAT 98–100
[2016-10-08] MEDS: ACETAMINOPHEN/HYDROcodone 325 MG/5 MG TAB PO PRN ×3 (06:17→19:52)
[2016-10-08] MEDS: SODIUM CHLORIDE 0.9% FLUSH 10 ML FLUSH IV FLUSH SCH ×2 (09:00→19:56)
[2016-10-08] MEDS: PANTOPRAZOLE SODIUM 40 MG VIAL IV PUSH SCH (09:00)
[2016-10-08 09:30] LABS: HEMATOCRIT 24.1 % (35.0-46.0); MEAN CELL VOLUME 95.4 FL (80.0-100.0); MEAN CORPUSCULAR HEMOGLOBIN 32.5 PG (27.0-34.0); PLATELET COUNT 146 TH/MM3 (150-450); RED BLOOD COUNT 2.52 MIL/MM3 (4.00-5.30); RED CELL DISTRIBUTION WIDTH 14.5 % (11.6-17.2); REVIEW FLAG FINAL
--- NOTE | 2016-10-08 09:35 | HHI.DS ---
Discharge Summary Admission Date Oct 05, 2016 at 22:57 Discharge Date: Oct 08, 2016 Admitting Diagnosis GI bleed (1) GI bleed ICD Code: K92.2 Procedures None Brief History - From Admission Written by Alyx Aragon, acting as scribe for Dr. Lutz on 10/06/16 at 04:02. Here from [place] to be inducted into the [employer] [facility]. Has had rectal bleeding since Tuesday - multiple episodes Tuesday and Tuesday but it seemed to resolve Tuesday morning. Flew in Tuesday night and was doing well on Thursday 10/05 until she went to an [employer] banquet- when she stood up, her grandson noticed she had bled all over her skirt and the soaked the upholstery of the chair she was sitting on- a very large amount of dark and thick red blood. She is anticoagulated with Coumadin for atrial fibrillation with INR of 2.0 in ED. The last time she had similar bleeding was due to diverticular bleed. Not sure how bleeding was stopped. She has had three episodes of this. Has had bleeding on Xarelto, Eliquis, and Coumadin which is given for atrial fibrillation. The patient also has a PPM. She had some dizziness but no other symptoms other than the bleeding. . CBC/BMP: 10/08/16 0732 10/07/16 0307 Significant Findings Laboratory Tests Test 10/05/16 10/06/16 10/06/16 10/06/16 22:00 04:35 11:14 16:52 Red Blood Count 3.16 MIL/MM3 2.83 MIL/MM3 (4.00-5.30) (4.00-5.30) Hemoglobin 10.0 GM/DL 9.0 GM/DL 8.2 GM/DL 7.9 GM/DL (11.6-15.3) (11.6-15.3) (11.6-15.3) (11.6-15.3) Hematocrit 29.8 % 26.8 % 24.7 % 24.5 % (35.0-46.0) (35.0-46.0) (35.0-46.0) (35.0-46.0) Monocytes (%) (Auto) 9.9 % (0.0-8.0) 12.0 % (0.0-8.0) Eosinophils (%) (Auto) 4.5 % (0.0-4.0) 7.5 % (0.0-4.0) Prothrombin Time 23.0 SEC (9.8-11.6) Activated Partial 33.1 SEC Thromboplast Time (24.3-30.1) Blood Urea Nitrogen 20 MG/DL (7-18) Creatinine 0.49 MG/DL 0.46 MG/DL (0.50-1.00) (0.50-1.00) Random Glucose 107 MG/DL (74-106) Total Protein 5.7 GM/DL (6.4-8.2) Albumin 3.3 GM/DL (3.4-5.0) Eosinophils # (Auto) 0.5 TH/MM3 (0-0.4) Sodium Level 146 MEQ/L (136-145) Chloride Level 112 MEQ/L (98-107) Test 10/06/16 10/07/16 10/07/16 10/07/16 22:57 03:07 11:39 17:39 Hemoglobin 8.6 GM/DL 8.4 GM/DL 8.8 GM/DL 8.0 GM/DL (11.6-15.3) (11.6-15.3) (11.6-15.3) (11.6-15.3) Hematocrit 25.0 % 25.0 % 26.4 % 24.7 % (35.0-46.0) (35.0-46.0) (35.0-46.0) (35.0-46.0) Red Blood Count 2.64 MIL/MM3 (4.00-5.30) Platelet Count 136 TH/MM3 (150-450) Prothrombin Time 16.9 SEC (9.8-11.6) Sodium Level 147 MEQ/L (136-145) Potassium Level 3.3 MEQ/L (3.5-5.1) Chloride Level 114 MEQ/L (98-107) Creatinine 0.39 MG/DL (0.50-1.00) Calcium Level 7.8 MG/DL (8.5-10.1) Test 10/08/16 07:32 Red Blood Count 2.52 MIL/MM3 (4.00-5.30) Hemoglobin 8.2 GM/DL (11.6-15.3) Hematocrit 24.1 % (35.0-46.0) Platelet Count 146 TH/MM3 (150-450) PE at Discharge GENERAL: Well-developed well-nourished elderly female patient in [facility]. SKIN: Warm and dry. HEENT: Atraumatic. Normocephalic. Pupils equal and round. Mucous membranes pink and moist. NECK: Trachea midline. CARDIOVASCULAR: Regular rate and rhythm. No murmur appreciated. RESPIRATORY: No accessory muscle use. Clear to auscultation. Breath sounds equal bilaterally. GASTROINTESTINAL: Abdomen soft, non-tender, nondistended. Hepatic and splenic margins not palpable. MUSCULOSKELETAL: Extremities without clubbing, cyanosis, or edema. No obvious deformities. NEUROLOGICAL: Awake and alert. No obvious cranial nerve deficits. Motor grossly within normal limits. Normal speech. PSYCHIATRIC: Appropriate mood and affect; insight and judgment normal. Hospital Course Mrs. Pulido is an 89-year-old female. She was admitted secondary to GI bleed. Transfusion was needed. She has a history of diverticulosis and bleeding from diverticulosis. She requested to avoid colonoscopies. Through time her bleeding has decreased and now she has spontaneous improvement in her hemoglobin demonstrating cessation of bleeding. At this point she is medically stable for discharge to home. She'll follow up in her home town with her primary doctor and breaker machine operator. She is to return to any medical facility if bleeding happens again. Discharge home today. Pt Condition on Discharge: Stable Discharge Disposition: Discharge Home Discharge Time: <= 30 minutes Discharge Instructions DIET: Follow Instructions for: As Tolerated, No Restrictions Activities you can perform: Regular-No Restrictions Follow up Referrals: PCP Follow-up - 1 Week New Medications: Psyllium Powder (Metamucil Smooth Texture) 28.3 % Pow 1 SCOOP PO TID 1 rounded TEASPOON in 8 oz of liquid at the first sign of irregularity. PRN CONSTIPATION #30 Ref 0 CONTAINER Continued Medications: Amlodipine (Amlodipine) 10 Mg Tab 10 MG PO DAILY Blood Pressure Management #30 Ref 0 TAB Losartan (Losartan) 25 Mg Tab 25 MG PO DAILY Blood Pressure Management #30 Ref 0 TAB Discontinued Medications: Warfarin (Coumadin) 5 Mg Tab 5 MG PO DAILY Blood Clot Prevention #30 Ref 0 TAB Tobias Mcgowan MD Oct 08, 2016 09:35
[2016-10-08 09:37] LABS: INTERNATIONAL NORMALIZED RATIO 1.3 RATIO
[2016-10-08 09:50] LABS: BICARBONATE 27.4 MEQ/L (21.0-32.0); POTASSIUM 3.8 MEQ/L (3.5-5.1)
--- NOTE | 2016-10-08 10:05 | HHI.PR ---
Subjective Remarks Pulmonary bowel movement this morning. Discharge, and process, is canceled. Patient is not opposed to colonoscopy now. No complaints of abdominal pain. Objective Vital Signs Date Time Temp Pulse Resp B/P Pulse Ox O2 Delivery O2 Flow Rate FiO2 10/08/16 08:19 97.7 75 18 134/63 99 10/08/16 07:17 16 10/08/16 04:00 Room Air 10/08/16 04:00 97.6 66 20 125/63 98 10/08/16 00:03 97.8 75 20 129/60 98 10/08/16 00:00 Room Air 10/07/16 20:00 Room Air 10/07/16 20:00 98.1 84 16 129/67 97 10/07/16 16:00 97.2 80 20 146/63 95 10/07/16 12:00 97.7 80 20 107/56 98 I/O 10/07/16 10/07/16 10/07/16 10/08/16 10/08/16 10/08/16 07:00 15:00 23:00 07:00 15:00 23:00 Intake Total 650 ml 360 ml 480 ml 120 ml Balance 650 ml 360 ml 480 ml 120 ml Intake Oral 0 ml 360 ml 480 ml 120 ml IV Total 650 ml # Voids 1 5 3 3 # Bowel Movements 2 2 0 0 Result Diagram: 10/08/16 0732 10/08/16 0732 Objective Remarks GENERAL: NAD, A&Ox3 HEAD: Normocephalic. NECK: Supple, trachea midline. No lymphadenopathy. EYES: No scleral icterus. No injection or drainage. CARDIOVASCULAR: Regular rate and rhythm without murmurs, gallops, or rubs. RESPIRATORY: Breath sounds equal bilaterally. No accessory muscle use. GASTROINTESTINAL: Abdomen soft, non-tender, nondistended. MUSCULOSKELETAL: No cyanosis, or edema. SKIN: Warm and dry. NEURO: No focal neurological deficitis. A/P Problem List: (1) GI bleed ICD Code: K92.2 Assessment and Plan Assessment and Plan 89-year-old female admitted for GI bleed, secondary to. Hypertension and atrial fibrillation have remained stable. Recurrence of GI bleed this morning. Repeat blood counts ordered. GI informed. Discharge canceled. GI bleed Transfuse 1 unit packed red blood cells while here Coumadin. Workup shows bleed is decreasing Follow hemoglobin through tomorrow morning Hypertension Currently well controlled Follow blood pressures Resume losartan and amlodipine at discharge Atrial fibrillation Coumadin on hold secondary to GI bleed Patient will have procedure to attempt and stop her atrial fibrillation, and [place], rather than resume Coumadin Patient has spoke with her public information relations manager in [place] about this No need to follow INR further DVT prophylaxis SCDs Problem Qualifiers (1) GI bleed: Qualified Code: K92.2 - Gastrointestinal hemorrhage, unspecified gastrointestinal hemorrhage type Tobias Mcgowan MD Oct 08, 2016 10:05
[2016-10-08 12:09] LABS: HEMATOCRIT 26.4 % (35.0-46.0); REVIEW FLAG FINAL
[2016-10-08] MEDS: SODIUM CHLOR 0.9% 1000 ML INJ 1,000 ML IV SCH ×2 (13:17→22:05)
--- NOTE | 2016-10-08 16:44 | HHI.GIFU ---
Subjective Remarks Pt complains of renewed LGI bleeding, passing clots and fresh red blood. Minor cramps. No dizziness. No more transfusions today. Objective Vitals I&O Vital Signs Date Time Temp Pulse Resp B/P Pulse Ox O2 Delivery O2 Flow Rate FiO2 10/08/16 12:21 97.6 84 18 139/64 100 10/08/16 08:19 97.7 75 18 134/63 99 10/08/16 07:17 16 10/08/16 04:00 Room Air 10/08/16 04:00 97.6 66 20 125/63 98 10/08/16 00:03 97.8 75 20 129/60 98 10/08/16 00:00 Room Air 10/07/16 20:00 Room Air 10/07/16 20:00 98.1 84 16 129/67 97 I/O 10/07/16 10/07/16 10/07/16 10/08/16 10/08/16 10/08/16 07:00 15:00 23:00 07:00 15:00 23:00 Intake Total 650 ml 360 ml 480 ml 120 ml 360 ml Balance 650 ml 360 ml 480 ml 120 ml 360 ml Intake Oral 0 ml 360 ml 480 ml 120 ml 360 ml IV Total 650 ml # Voids 1 5 3 3 5 # Bowel Movements 2 2 0 0 0 Laboratory Laboratory Tests Test 10/07/16 10/08/16 10/08/16 17:39 07:32 11:40 Hemoglobin 8.0 8.2 9.0 Hematocrit 24.7 24.1 26.4 White Blood Count 4.0 Red Blood Count 2.52 Mean Corpuscular Volume 95.4 Mean Corpuscular Hemoglobin 32.5 Mean Corpuscular Hemoglobin 34.0 Concent Red Cell Distribution Width 14.5 Platelet Count 146 Mean Platelet Volume 9.1 Prothrombin Time 14.0 Prothromb Time International 1.3 Ratio Sodium Level 141 Potassium Level 3.8 Chloride Level 108 Carbon Dioxide Level 27.4 Anion Gap 6 Blood Urea Nitrogen 5 Creatinine 0.38 Estimat Glomerular Filtration 159 Rate Random Glucose 84 Calcium Level 8.5 Physical Exam HEENT: Normocephalic; atraumatic; no jaundice CHEST: CTA CARDIAC: RRR. ABDOMEN: Soft, nondistended, nontender; no hepatosplenomegaly; bowel sounds are present in all four quadrants. EXTREMITIES: No clubbing, cyanosis, or edema. SKIN: Normal; no rash; no jaundice. NEWS REPORTER: No focal deficits; alert and oriented times three. Assessment and Plan Plan ASSESSMENT: - Rectal bleeding, likely diverticular. Pt visiting from [place] to be inducted into the [employer]. She has a hx of diverticular bleeding about 4-5 times in the past, usually about once every 2 years, last episode was 1 year ago. She had a colonoscopy one year ago and reports this revealed diverticulosis, no polyps and she was told that her rectal bleeding was a diverticular bleed. She started having rectal bleeding on Tuesday and has had intermittent bleeding since that time. She had a large amount of red blood with blood clots independent from stool yesterday. No n/v, no abdominal pain. She has had several episodes today, whenever she goes to the bathroom. She would like to try to avoid a colonoscopy if possible. She does have a history of atrial fibrillation and takes Coumadin at home, but this is now on hold. She also occasionally takes Aleve for arthritic pain. She would like to try to avoid a colonoscopy if possible. S/P Miralax yesterday- multiple bowel movements yesterday, although the bleeding subsided. She has not had any further episodes. She reports that she is glad because she did not want to have a colonoscopy. - Anemia secondary to blood loss. S/P PRBC. HH 8.4/25.0. - Hx atrial fibrillation, s/p ablation, on coumadin- currently being hold. Pt contacted her armature tester in [place] and he told her not to go back on the coumadin, that he was keeping her off of it. - HTN per attending. 10/08 symptoms consistent with additional bleeding. PT/INR is still a bit elevated. PLAN: She should receive 1-2 units of FFP to normalize her Pro time. Continue to follow H/H. Colonoscopy may be useful to try to stop the bleeding if it continues, or she could have angiogram. Charlie Leonard MD Oct 08, 2016 16:44
[2016-10-08] MEDS ORDERED: SODIUM CHLOR 0.9% 250 ML INJ 250 ML IV ONE (17:15)
[2016-10-08] MEDS ORDERED: PHYTONADIONE 5 MG TAB PO ONE (18:00)
[2016-10-08] MEDS ORDERED: diphenhydrAMINE HCL 50 MG/ML VIAL IV PUSH ONE (19:45)
[2016-10-09] VITALS (9 sets, daily range): BP systolic 100–129; BP diastolic 51–63; PULSE 70–98; RESP 16–19; TEMP 97.5–99; O2SAT 94–99
[2016-10-09 00:48] LABS: INTERNATIONAL NORMALIZED RATIO 1.2 RATIO; PROTHROMBIN TIME - PATIENT 13.6 SEC (9.8-11.6)
[2016-10-09 01:03] LABS: REVIEW FLAG FINAL
[2016-10-09 01:33] LABS: HEMATOCRIT 19.8 % (35.0-46.0)
[2016-10-09] MEDS ORDERED: FUROSEMIDE 20 MG/2 ML VIAL IV ONE (02:15)
[2016-10-09] MEDS ORDERED: SODIUM CHLOR 0.9% 250 ML INJ 250 ML IV ONE (02:15)
[2016-10-09] MEDS: ACETAMINOPHEN 325 MG TAB PO PRN ×2 (02:41→06:06)
[2016-10-09] MEDS: diphenhydrAMINE HCL 25 MG CAP PO PRN ×2 (02:41→06:07)
[2016-10-09 05:04] LABS: INTERNATIONAL NORMALIZED RATIO 1.2 RATIO; PROTHROMBIN TIME - PATIENT 13.5 SEC (9.8-11.6)
[2016-10-09] MEDS: SODIUM CHLORIDE 0.9% FLUSH 10 ML FLUSH IV FLUSH SCH ×2 (09:07→21:00)
[2016-10-09] MEDS: PANTOPRAZOLE SODIUM 40 MG VIAL IV PUSH SCH (09:07)
[2016-10-09] MEDS: SODIUM CHLOR 0.9% 1000 ML INJ 1,000 ML IV SCH ×2 (09:07→21:55)
[2016-10-09 11:19] LABS: HEMATOCRIT 26.2 % (35.0-46.0); MEAN CELL VOLUME 90.9 FL (80.0-100.0); PLATELET COUNT 155 TH/MM3 (150-450); RED BLOOD COUNT 2.89 MIL/MM3 (4.00-5.30); RED CELL DISTRIBUTION WIDTH 18.3 % (11.6-17.2); REVIEW FLAG FINAL; WHITE BLOOD COUNT 5.7 TH/MM3 (4.0-11.0)
--- NOTE | 2016-10-09 11:35 | HHI.PR ---
Subjective Remarks Hemoglobin drops seen in the evening and related to GI bleed in the morning. Hemoglobin 6.6 and patient has been given vitamin K, 2 units of fresh frozen plasma and 2 units of RBCs. She reports no further bleeding for the last 24 hours. Objective Vital Signs Date Time Temp Pulse Resp B/P Pulse Ox O2 Delivery O2 Flow Rate FiO2 10/09/16 09:20 Room Air 10/09/16 08:00 97.9 74 18 111/56 97 10/09/16 06:46 97.8 74 18 100/62 94 10/09/16 04:00 97.5 98 18 108/51 98 10/09/16 00:00 98.0 82 18 119/59 97 10/08/16 20:17 85 10/08/16 20:00 97.2 86 18 127/64 98 10/08/16 19:30 Room Air 10/08/16 19:25 98.4 80 20 157/70 10/08/16 18:40 98.4 78 20 112/66 10/08/16 18:25 98.6 80 20 118/70 10/08/16 16:04 98.5 90 19 114/55 99 10/08/16 12:21 97.6 84 18 139/64 100 I/O 10/08/16 10/08/16 10/08/16 10/09/16 10/09/16 10/09/16 07:00 15:00 23:00 07:00 15:00 23:00 Intake Total 120 ml 360 ml 520 ml 180 ml Output Total 600 ml Balance 120 ml 360 ml -80 ml 180 ml Intake Oral 120 ml 360 ml 520 ml 180 ml Output Urine Total 600 ml # Voids 3 5 1 # Bowel Movements 0 0 0 0 Result Diagram: 10/09/16 1044 10/08/16 0732 Objective Remarks GENERAL: NAD, A&Ox3 HEAD: Normocephalic. NECK: Supple, trachea midline. No lymphadenopathy. EYES: No scleral icterus. No injection or drainage. CARDIOVASCULAR: Regular rate and rhythm without murmurs, gallops, or rubs. RESPIRATORY: Breath sounds equal bilaterally. No accessory muscle use. GASTROINTESTINAL: Abdomen soft, non-tender, nondistended. MUSCULOSKELETAL: No cyanosis, or edema. SKIN: Warm and dry. NEURO: No focal neurological deficitis. A/P Problem List: (1) GI bleed ICD Code: K92.2 Assessment and Plan Assessment and Plan 89-year-old female admitted for GI bleed, secondary to. Hypertension and atrial fibrillation have remained stable. No further GI bleed since yesterday morning. 2 units of packed red blood cells, 2 units of fresh frozen plasma, vitamin K provided. Advance diet. Follow hemoglobin levels and follow for clinical bleeding. GI bleed Transfused packed red blood cells overnight Coumadin. Workup shows bleed is decreasing Follow hemoglobin through tomorrow morning Hypertension Currently well controlled Follow blood pressures Resume losartan and amlodipine at discharge Atrial fibrillation Coumadin on hold secondary to GI bleed Patient will have procedure to attempt and stop her atrial fibrillation, and [place], rather than resume Coumadin Patient has spoke with her manager industrial in [place] about this No need to follow INR further DVT prophylaxis SCDs Problem Qualifiers (1) GI bleed: Qualified Code: K92.2 - Gastrointestinal hemorrhage, unspecified gastrointestinal hemorrhage type Tobias Mcgowan MD Oct 09, 2016 11:35
[2016-10-09] MEDS ORDERED: diphenhydrAMINE HCL 50 MG/ML VIAL IV PUSH ONE (12:15)
[2016-10-09] MEDS ORDERED: ACETAMINOPHEN 500 MG CPLT PO ONE (12:15)
--- NOTE | 2016-10-09 12:28 | HHI.GIFU ---
Subjective Remarks Pt had rectal bleeding yesterday morning and H/H dropped to 6.6/19.8 Pt was transfused with FFP and PRBCs No further bleeding since yesterday morning. Denies any abd pain, nausea/vomiting. Pt tolerating regular diet. (Michaela Soto) Objective Vitals I&O Vital Signs Date Time Temp Pulse Resp B/P Pulse Ox O2 Delivery O2 Flow Rate FiO2 10/09/16 12:00 98.5 77 18 109/56 98 10/09/16 09:20 Room Air 10/09/16 08:00 97.9 74 18 111/56 97 10/09/16 06:46 97.8 74 18 100/62 94 10/09/16 04:00 97.5 98 18 108/51 98 10/09/16 00:00 98.0 82 18 119/59 97 10/08/16 20:17 85 10/08/16 20:00 97.2 86 18 127/64 98 10/08/16 19:30 Room Air 10/08/16 19:25 98.4 80 20 157/70 10/08/16 18:40 98.4 78 20 112/66 10/08/16 18:25 98.6 80 20 118/70 10/08/16 16:04 98.5 90 19 114/55 99 10/08/16 12:21 97.6 84 18 139/64 100 I/O 10/08/16 10/08/16 10/08/16 10/09/16 10/09/16 10/09/16 07:00 15:00 23:00 07:00 15:00 23:00 Intake Total 120 ml 360 ml 520 ml 180 ml Output Total 600 ml Balance 120 ml 360 ml -80 ml 180 ml Intake Oral 120 ml 360 ml 520 ml 180 ml Output Urine Total 600 ml # Voids 3 5 1 # Bowel Movements 0 0 0 0 Laboratory Laboratory Tests Test 10/08/16 10/08/16 10/09/16 10/09/16 17:09 23:57 04:30 10:44 Blood Bank Comment Hemoglobin 6.6 8.7 Hematocrit 19.8 26.2 Prothrombin Time 13.6 13.5 Prothromb Time International 1.2 1.2 Ratio Blood Type O POSITIVE Antibody Screen NEGATIVE Crossmatch Leukocyte-Reduced Red Blood Cells White Blood Count 5.7 Red Blood Count 2.89 Mean Corpuscular Volume 90.9 Mean Corpuscular Hemoglobin 30.0 Mean Corpuscular Hemoglobin 33.0 Concent Red Cell Distribution Width 18.3 Platelet Count 155 Mean Platelet Volume 8.7 Physical Exam HEENT: Normocephalic; atraumatic; no jaundice CHEST: CTA CARDIAC: RRR. ABDOMEN: +BS, soft, nondistended, nontender EXTREMITIES: No clubbing, cyanosis, or edema. SKIN: Normal; no rash; no jaundice. DOORPERSON OR LUGGAGE PORTER: No focal deficits; alert and oriented times three. (Michaela Soto) Assessment and Plan Plan ASSESSMENT: - Rectal bleeding, likely diverticular. Pt visiting from [place] to be inducted into the [employer] [facility]. She has a hx of diverticular bleeding about 4-5 times in the past, usually about once every 2 years, last episode was 1 year ago. She had a colonoscopy one year ago and reports this revealed diverticulosis, no polyps and she was told that her rectal bleeding was a diverticular bleed. She started having rectal bleeding on Tuesday and has had intermittent bleeding since that time. She had a large amount of red blood with blood clots independent from stool. No n/v, no abdominal pain. She would like to try to avoid a colonoscopy if possible. She does have a history of atrial fibrillation and takes Coumadin at home, but this is now on hold. She also occasionally takes Aleve for arthritic pain. S/P Miralax on 10/06 resulting in multiple bowel movements. On pt had GIB. Her H/H dropped on 10/08 to 6.6/19.8. Patient was given vitamin K, 2 units of fresh frozen plasma and 2 units of RBCs. She reports no further bleeding for the last 24 hours. H/H improved to 8.1/26.2 (10/09). - Anemia secondary to blood loss. S/P 3 units PRBC, 2 units FFP. HH 8.7/26.2 ( 10/09). - Hx atrial fibrillation, s/p ablation, on Coumadin- currently being hold. Pt contacted her chief controller in [place] and he told her not to go back on the Coumadin, that he was keeping her off of it. INR 1.2 (10/09) - HTN per attending. PLAN: - No further bleeding in the last 24 hours. - Pt does not want to have a colonoscopy at this time. - Monitor H/H - If any further active bleeding and pt refused colonoscopy could consider angiogram. - PPI - Supportive care - The pt was seen and examined by myself and Dr. Mcdaniels, this note was written on his behalf. (Michaela Soto) Physician Comments Patient seen and examined Agree with above Continue with current supportive care Monitor labs Not much to add from a GI standpoint Please reconsult if patient reconsiders her decision not to have a colonoscopy If any active bleeding at this point angiography with embolization may be an option We will sign off (Kyler Stephens MD) Michaela Soto Oct 09, 2016 12:28 Kyler Stephens MD Oct 09, 2016 19:53
[2016-10-09] MEDS: ACETAMINOPHEN/HYDROcodone 325 MG/5 MG TAB PO PRN ×2 (12:43→22:04)
[2016-10-09 21:17] LABS: HEMATOCRIT 28.4 % (35.0-46.0)
[2016-10-10] VITALS (9 sets, daily range): BP systolic 108–130; BP diastolic 56–76; PULSE 67–99; RESP 16–18; TEMP 97.8–98.5; O2SAT 96–98
[2016-10-10] MEDS: MORPHINE SULFATE 4 MG/ML INJ IV PRN ×2 (00:39→20:27)
[2016-10-10] MEDS: SODIUM CHLOR 0.9% 1000 ML INJ 1,000 ML IV SCH (08:57)
[2016-10-10] MEDS: SODIUM CHLORIDE 0.9% FLUSH 10 ML FLUSH IV FLUSH SCH ×2 (08:57→20:27)
[2016-10-10] MEDS: PANTOPRAZOLE SODIUM 40 MG VIAL IV PUSH SCH (08:57)
[2016-10-10 09:32] LABS: HEMATOCRIT 29.9 % (35.0-46.0); MEAN CELL VOLUME 89.3 FL (80.0-100.0); MEAN CORPUSCULAR HEMOGLOBIN 30.7 PG (27.0-34.0); MEAN CORPUSCULAR HGB CONC 34.4 % (32.0-36.0); PLATELET COUNT 168 TH/MM3 (150-450); RED BLOOD COUNT 3.35 MIL/MM3 (4.00-5.30); REVIEW FLAG FINAL; WHITE BLOOD COUNT 6.8 TH/MM3 (4.0-11.0)
[2016-10-10 09:38] LABS: PROTHROMBIN TIME - PATIENT 10.9 SEC (9.8-11.6)
[2016-10-10 10:00] LABS: BICARBONATE 26.3 MEQ/L (21.0-32.0)
--- NOTE | 2016-10-10 11:48 | HHI.PR ---
Subjective Remarks Patient stable since yesterday. She does report one bloody bowel movement this morning but demonstrates no drop in her hemoglobin. No other complaints. Objective Vital Signs Date Time Temp Pulse Resp B/P Pulse Ox O2 Delivery O2 Flow Rate FiO2 10/10/16 09:02 Room Air 10/10/16 09:02 74 10/10/16 08:01 98.5 76 16 127/61 96 10/10/16 04:00 98.0 74 18 108/58 97 10/10/16 00:00 98.0 73 18 116/76 98 10/09/16 20:00 99.0 87 16 122/61 97 10/09/16 16:00 98.2 78 19 117/57 99 10/09/16 14:29 97.7 75 127/63 98 10/09/16 14:15 97.8 70 129/61 98 10/09/16 12:00 98.5 77 18 109/56 98 I/O 10/09/16 10/09/16 10/09/16 10/10/16 10/10/16 10/10/16 06:59 14:59 22:59 06:59 14:59 22:59 Intake Total 180 ml 240 ml 1485 ml 360 ml Output Total 4 ml Balance 180 ml 240 ml 1481 ml 360 ml Intake Oral 180 ml 240 ml 360 ml 360 ml IV Total 1125 ml Output Urine Total 4 ml # Voids 1 5 4 # Bowel Movements 0 0 0 0 Result Diagram: 10/10/1690610/10/16 0907 Objective Remarks GENERAL: NAD, A&Ox3 HEAD: Normocephalic. NECK: Supple, trachea midline. No lymphadenopathy. EYES: No scleral icterus. No injection or drainage. CARDIOVASCULAR: Regular rate and rhythm without murmurs, gallops, or rubs. RESPIRATORY: Breath sounds equal bilaterally. No accessory muscle use. GASTROINTESTINAL: Abdomen soft, non-tender, nondistended. MUSCULOSKELETAL: No cyanosis, or edema. SKIN: Warm and dry. NEURO: No focal neurological deficitis. A/P Problem List: (1) GI bleed ICD Code: K92.2 Assessment and Plan Assessment and Plan 89-year-old female admitted for GI bleed, secondary to. Hypertension and atrial fibrillation have remained stable. Some blood in bowel movement this morning. No drop in hemoglobin overnight. If stability remains by tomorrow she may be stable for discharge as soon as tomorrow. GI bleed Transfused packed red blood cells overnight Coumadin. Workup shows bleed is decreasing Follow hemoglobin through tomorrow morning Hypertension Currently well controlled Follow blood pressures Resume losartan and amlodipine at discharge Atrial fibrillation Coumadin on hold secondary to GI bleed Patient will have procedure to attempt and stop her atrial fibrillation, and [place], rather than resume Coumadin Patient has spoke with her roundhouse worker in [place] about this No need to follow INR further DVT prophylaxis SCDs Problem Qualifiers (1) GI bleed: Qualified Code: K92.2 - Gastrointestinal hemorrhage, unspecified gastrointestinal hemorrhage type Tobias Mcgowan MD Oct 10, 2016 11:47
[2016-10-10] MEDS: ACETAMINOPHEN/HYDROcodone 325 MG/5 MG TAB PO PRN (14:33)
--- NOTE | 2016-10-10 18:42 | HHI.GIFU ---
GI Follow-up Note Consult Follow-up gi had signed off on patient yesterday No one notified gi of recurrent gi bleed until today at 5:30 pm also I was rounding on the floor 30 minutes before notification, no one informed me at that time As per notes -patient was offered colonoscopy but she declined has history of diverticular bleeding we will monitor hb/ht, transfuse prn, stat bleeding scan if positive will need angiogram with embolization at this time as per discussion with nursing staff she is stable ASSESSMENT/PLAN: It was a pleasure seeing Heather Pulido. Thank you for this consult. Entered by: Leatha Leung MD Oct 10, 2016 18:42
[2016-10-10 18:58] LABS: HEMATOCRIT 26.3 % (35.0-46.0)
--- NOTE | 2016-10-10 22:31 | RADRPT ---
EXAM DATE/TIME: 10/10/2016 20:13 [facility] COMPARISON: No previous studies available for comparison. INDICATIONS : Rectal bleeding for one week. DOSE: 21 mCi Tc99m Ultratag labeled red blood cells IV IMAGIN hrs MEDICAL HISTORY : Hypertension. Atrial fibrillation. SURGICAL HISTORY : Umbilical hernia repair. Pacemaker. Hysterectomy. Bilateral knee replacement. ENCOUNTER: Initial ACUITY: 1 week PAIN SCALE: 0/10 LOCATION: Abdomen. TECHNIQUE: Following the modified in vitro labeling of autologous red cells, dynamic continuous images were acqu ired for the specified interval. FINDINGS: BIODISTRIBUTION: There is a very good labeling of red cells without significant uptake in the gastric wall. There is good delineation of the blood pool of the spleen and abdominal vessels. BLEEDING: No episodes of active GI bleeding are observed during specified interval of continuous observation. CONCLUSION: Normal examination. Michael Farmer MD on October 10, 2016 at 22:29 Board Certified Radiologist. This report was verified electronically.
[2016-10-11] VITALS (9 sets, daily range): BP systolic 128–141; BP diastolic 60–75; PULSE 60–80; RESP 16–18; TEMP 97.2–98.5; O2SAT 95–98
[2016-10-11] MEDS: ACETAMINOPHEN/HYDROcodone 325 MG/5 MG TAB PO PRN ×2 (00:40→12:31)
[2016-10-11 06:52] LABS: HEMATOCRIT 31.1 % (35.0-46.0); REVIEW FLAG FINAL
[2016-10-11] MEDS: PANTOPRAZOLE SODIUM 40 MG VIAL IV PUSH SCH (09:35)
[2016-10-11] MEDS: SODIUM CHLORIDE 0.9% FLUSH 10 ML FLUSH IV FLUSH SCH ×2 (09:35→21:40)
--- NOTE | 2016-10-11 10:44 | HHI.PR ---
Subjective Remarks Mrs. Pulido is an 89-year-old female who was admitted secondary to GI bleed. She is from [place] and was in town to receive an induction into the [facility]. She remains in the hospital because she's been having recurrent GI bleeds and episodes of acute blood loss anemia. Downward trend in hemoglobin last night. Bleed study ordered and this shows no localization of the bleed. Please may be intermittent. Patient transfused 2 more units of packed red blood cells last night. Will need to monitor hemoglobin levels for stability prior to consideration for discharge Objective Vital Signs Date Time Temp Pulse Resp B/P Pulse Ox O2 Delivery O2 Flow Rate FiO2 10/11/16 08:00 98.2 71 16 139/71 95 10/11/16 04:56 98.5 60 16 129/60 96 10/11/16 02:45 98.1 67 18 128/60 97 10/11/16 02:20 97.2 76 18 138/63 10/11/16 00:00 Room Air 10/10/16 23:20 97.8 99 18 130/57 97 10/10/16 23:00 98.2 84 18 126/60 10/10/16 20:00 76 10/10/16 20:00 Room Air 10/10/16 16:01 98.3 71 16 112/57 96 10/10/16 12:01 98.1 67 16 118/56 98 I/O 10/10/16 10/10/16 10/10/16 10/11/16 10/11/16 10/11/16 07:00 15:00 23:00 07:00 15:00 23:00 Intake Total 360 ml 2279 ml 480 ml 240 ml Output Total 1000 ml 400 ml Balance 360 ml 1279 ml 80 ml 240 ml Intake Oral 360 ml 480 ml 480 ml 240 ml IV Total 1799 ml Output Urine Total 1000 ml 250 ml Estimated Blood Loss 150 ml # Voids 4 4 # Bowel Movements 0 3 5 0 Result Diagram: 10/11/16 0625 10/10/16 0907 Objective Remarks GENERAL: NAD, A&Ox3 HEAD: Normocephalic. NECK: Supple, trachea midline. No lymphadenopathy. EYES: No scleral icterus. No injection or drainage. CARDIOVASCULAR: Regular rate and rhythm without murmurs, gallops, or rubs. RESPIRATORY: Breath sounds equal bilaterally. No accessory muscle use. GASTROINTESTINAL: Abdomen soft, non-tender, nondistended. MUSCULOSKELETAL: No cyanosis, or edema. SKIN: Warm and dry. NEURO: No focal neurological deficitis. A/P Problem List: (1) GI bleed ICD Code: K92.2 Assessment and Plan Assessment and Plan 89-year-old female admitted for GI bleed, secondary to. Hypertension and atrial fibrillation have remained stable. Transfuse again last night. Follow hemoglobin levels. GI bleed Transfused packed red blood cells overnight Coumadin. Workup shows bleed is decreasing Follow hemoglobin through tomorrow morning Hypertension Currently well controlled Follow blood pressures Resume losartan and amlodipine at discharge Atrial fibrillation Coumadin on hold secondary to GI bleed Patient will have procedure to attempt and stop her atrial fibrillation, and [place], rather than resume Coumadin Patient has spoke with her vp treasurer in [place] about this No need to follow INR further DVT prophylaxis SCDs Discharge planning Will need to monitor hemoglobin levels for stability prior to consideration for discharge. Patient will be traveling to [place] by plane immediately upon discharge. Problem Qualifiers (1) GI bleed: Qualified Code: K92.2 - Gastrointestinal hemorrhage, unspecified gastrointestinal hemorrhage type Tobias Mcgowan MD Oct 11, 2016 10:44 am
--- NOTE | 2016-10-11 14:27 | HHI.GIFU ---
Subjective Remarks Pt resting in bed, asking for food. She agrees to colonoscopy so long as she doesn't have to do GoLytely prep. Had episode of rectal bleeding with loose stool yesterday prior to bleeding scan, none since. Objective Vitals I&O Vital Signs Date Time Temp Pulse Resp B/P Pulse Ox O2 Delivery O2 Flow Rate FiO2 10/11/16 12:00 98.4 71 17 138/64 97 10/11/16 08:18 68 10/11/16 08:00 Room Air 10/11/16 08:00 98.2 71 16 139/71 95 10/11/16 04:56 98.5 60 16 129/60 96 10/11/16 02:45 98.1 67 18 128/60 97 10/11/16 02:20 97.2 76 18 138/63 10/11/16 00:00 Room Air 10/10/16 23:20 97.8 99 18 130/57 97 10/10/16 23:00 98.2 84 18 126/60 10/10/16 20:00 76 10/10/16 20:00 Room Air 10/10/16 16:01 98.3 71 16 112/57 96 I/O 10/10/16 10/10/16 10/10/16 10/11/16 10/11/16 10/11/16 07:00 15:00 23:00 07:00 15:00 23:00 Intake Total 360 ml 2279 ml 480 ml 240 ml Output Total 1000 ml 400 ml Balance 360 ml 1279 ml 80 ml 240 ml Intake Oral 360 ml 480 ml 480 ml 240 ml IV Total 1799 ml Output Urine Total 1000 ml 250 ml Estimated Blood Loss 150 ml # Voids 4 4 # Bowel Movements 0 3 5 0 Laboratory Laboratory Tests Test 10/10/16 10/10/16 10/11/16 18:40 19:34 06:25 Hemoglobin 8.8 10.4 Hematocrit 26.3 31.1 Blood Type O POSITIVE Crossmatch Leukocyte-Reduced Red Blood Cells Blood Bank Comment Imaging Last Impressions GI Bleed Scan Nuclear Medicine 10/10/16 0000 Signed Impressions: Service Date/Time: Monday, October 10, 2016 20:13 - CONCLUSION: Normal examination. Michael Farmer MD Physical Exam HEENT: Normocephalic; atraumatic; no jaundice CHEST: CTA CARDIAC: RRR. ABDOMEN: +BS, soft, nondistended, nontender EXTREMITIES: No clubbing, cyanosis, or edema. SKIN: Normal; no rash; no jaundice. FOAM RUBBER MOLDER: No focal deficits; alert and oriented times three. Assessment and Plan Plan ASSESSMENT: - Rectal bleeding, likely diverticular. Pt visiting from [place] to be inducted into the [employer]. She has a hx of diverticular bleeding about 4-5 times in the past, usually about once every 2 years, last episode was 1 year ago. She had a colonoscopy one year ago and reports this revealed diverticulosis, no polyps and she was told that her rectal bleeding was a diverticular bleed. She started having rectal bleeding on Tuesday and has had intermittent bleeding since that time. She had a large amount of red blood with blood clots independent from stool. No n/v, no abdominal pain. She would like to try to avoid a colonoscopy if possible. She does have a history of atrial fibrillation and takes Coumadin at home, but this is now on hold. She also occasionally takes Aleve for arthritic pain. S/P Miralax on 10/06 resulting in multiple bowel movements. On pt had GIB. Her H/H dropped on 10/08 to 6.6/19.8. Patient was given vitamin K, 2 units of fresh frozen plasma and 2 units of RBCs. She reports no further bleeding for the last 24 hours. H/H improved to 8.1/26.2 (10/09). HH stable. Bleeding scan neg. Pt agreeabel to colonoscopy - Anemia secondary to blood loss. S/P 3 units PRBC, 2 units FFP. HH improved - Hx atrial fibrillation, s/p ablation, on Coumadin- currently being hold. Pt contacted her cigar making supervisor in [place] and he told her not to go back on the Coumadin, that he was keeping her off of it. INR 1.2 (10/09) - HTN per attending. PLAN: - colonoscopy in am - obtain consents - clears today - miralax prep - NPO after midnight tonight - monitor HH - supportive care - PPI - The pt was seen and examined by myself and Dr. Leonard, this note was written on his behalf. Katherine De La O PRINT COLOR OPERATOR Oct 11, 2016 14:27
[2016-10-11] MEDS ORDERED: BISACODYL EC 5 MG TABEC PO ONE (19:00)
[2016-10-11 20:05] LABS: HEMATOCRIT 33.2 % (35.0-46.0); REVIEW FLAG FINAL
[2016-10-12 04:50] VITALS: BP 125/61; PULSE 67; RESP 16; TEMP 97.8; O2SAT 95
[2016-10-12 06:57] LABS: HEMATOCRIT 32.2 % (35.0-46.0); MEAN CELL VOLUME 86.2 FL (80.0-100.0); MEAN CORPUSCULAR HGB CONC 33.7 % (32.0-36.0); PLATELET COUNT 178 TH/MM3 (150-450); RED BLOOD COUNT 3.73 MIL/MM3 (4.00-5.30); RED CELL DISTRIBUTION WIDTH 20.6 % (11.6-17.2); REVIEW FLAG FINAL; WHITE BLOOD COUNT 5.2 TH/MM3 (4.0-11.0)
[2016-10-12 07:49] LABS: BICARBONATE 25.2 MEQ/L (21.0-32.0)
[2016-10-12 07:54] LABS: POTASSIUM 2.7 MEQ/L (3.5-5.1)
[2016-10-12 08:04] VITALS: BP 163/80; PULSE 81; RESP 18; TEMP 97.8; O2SAT 96
[2016-10-12] MEDS ORDERED: POTASSIUM CHLORIDE 10 MEQ CONTROLLED RELEASE TAB PO ONE (08:15)
[2016-10-12 08:20] VITALS: PULSE 71
[2016-10-12] MEDS: PANTOPRAZOLE SODIUM 40 MG VIAL IV PUSH SCH (08:21)
[2016-10-12] MEDS: SODIUM CHLORIDE 0.9% FLUSH 10 ML FLUSH IV FLUSH SCH ×2 (08:21→20:25)
[2016-10-12] MEDS: ACETAMINOPHEN/HYDROcodone 325 MG/5 MG TAB PO PRN ×2 (08:22→18:53)
[2016-10-12] MEDS ORDERED: PHENYLEPH/NS 1000 MCG/10 ML SYR IV ONE (11:40)
[2016-10-12] MEDS ORDERED: PROPOFOL 200 MG/20 ML AMP IV ONE (11:40)
--- NOTE | 2016-10-12 12:15 | HHI.GIFU ---
Subjective Remarks Immediate postop note: Colonoscopy with biopsy Indication: LGI bleeding Meds: MAC Findings: Cecum: diminutive polyp removed with cold forceps. Right colon and transverse had no blood present, but mild diverticulosis there Left colon contained blood and clots, severe diverticulosis in sigmoid colon where most of the blood was located. Rectum: normal No actively bleeding lesion was seen. No cancer seen. Objective Vitals I&O Vital Signs Date Time Temp Pulse Resp B/P Pulse Ox O2 Delivery O2 Flow Rate FiO2 10/12/16 08:20 Room Air 10/12/16 08:20 71 10/12/16 08:04 97.8 81 18 163/80 96 10/12/16 04:50 97.8 67 16 125/61 95 10/12/16 00:00 Room Air 10/11/16 23:58 98.5 78 16 139/70 97 10/11/16 20:35 98.5 80 16 138/75 97 10/11/16 20:00 Room Air 10/11/16 16:00 98.5 64 17 141/66 98 10/11/16 14:00 20 I/O 10/11/16 10/11/16 10/11/16 10/12/16 10/12/16 10/12/16 07:00 15:00 23:00 07:00 15:00 23:00 Intake Total 240 ml 480 ml 960 ml 480 ml Output Total 1250 ml Balance 240 ml -770 ml 960 ml 480 ml Intake Oral 240 ml 480 ml 960 ml 480 ml Output Urine Total 1250 ml # Voids 4 8 3 # Bowel Movements 0 0 2 Laboratory Laboratory Tests Test 10/11/16 10/12/16 18:46 06:15 Hemoglobin 11.1 10.8 Hematocrit 33.2 32.2 White Blood Count 5.2 Red Blood Count 3.73 Mean Corpuscular Volume 86.2 Mean Corpuscular Hemoglobin 29.0 Mean Corpuscular Hemoglobin 33.7 Concent Red Cell Distribution Width 20.6 Platelet Count 178 Mean Platelet Volume 8.4 Sodium Level 143 Potassium Level 2.7 Chloride Level 106 Carbon Dioxide Level 25.2 Anion Gap 12 Blood Urea Nitrogen 7 Creatinine 0.34 Estimat Glomerular Filtration 181 Rate Random Glucose 72 Calcium Level 8.3 Physical Exam HEENT: Normocephalic; atraumatic; no jaundice CHEST: CTA CARDIAC: RRR. ABDOMEN: +BS, soft, nondistended, nontender EXTREMITIES: No clubbing, cyanosis, or edema. SKIN: Normal; no rash; no jaundice. FACSIMILE MACHINE OPERATOR: No focal deficits; alert and oriented times three. Assessment and Plan Plan ASSESSMENT: - Rectal bleeding, likely diverticular. Pt visiting from [place] to be inducted into the [employer]. She has a hx of diverticular bleeding about 4-5 times in the past, usually about once every 2 years, last episode was 1 year ago. She had a colonoscopy one year ago and reports this revealed diverticulosis, no polyps and she was told that her rectal bleeding was a diverticular bleed. She started having rectal bleeding on Tuesday and has had intermittent bleeding since that time. She had a large amount of red blood with blood clots independent from stool. No n/v, no abdominal pain. She would like to try to avoid a colonoscopy if possible. She does have a history of atrial fibrillation and takes Coumadin at home, but this is now on hold. She also occasionally takes Aleve for arthritic pain. S/P Miralax on 10/06 resulting in multiple bowel movements. On pt had GIB. Her H/H dropped on 10/08 to 6.6/19.8. Patient was given vitamin K, 2 units of fresh frozen plasma and 2 units of RBCs. She reports no further bleeding for the last 24 hours. H/H improved to 8.1/26.2 (10/09). HH stable. Bleeding scan neg. Pt agreeabel to colonoscopy - Anemia secondary to blood loss. S/P 3 units PRBC, 2 units FFP. HH improved - Hx atrial fibrillation, s/p ablation, on Coumadin- currently being hold. Pt contacted her notary public in [place] and he told her not to go back on the Coumadin, that he was keeping her off of it. INR 1.2 (10/09) - HTN per attending. PLAN: -start regular diet - Miralax 17gm bid until discharge then daily - Start Metamucil 1 tablespoon daily on discharge - monitor HH - supportive care - PPI - If no further overt bleeding OK to discharge afternoon Charlie Leonard MD Oct 12, 2016 12:15
--- NOTE | 2016-10-12 13:54 | HHI.PR ---
Subjective Remarks Patient seen and examined. Afebrile vital signs stable. Status post colonoscopy. Polyp was seen and removed. No active bleeding was seen. Per GIs recommendations as long as she remains stable, discharged home on . Patient reports that she is doing well and is hungry at this time. She has ordered her lunch. She is happy with the news of discharge on . Objective Vitals Vital Signs Date Time Temp Pulse Resp B/P Pulse Ox O2 Delivery O2 Flow Rate FiO2 10/12/16 12:15 57 18 128/58 99 10/12/16 12:00 97.7 53 18 112/53 100 10/12/16 08:20 Room Air 10/12/16 08:20 71 10/12/16 08:04 97.8 81 18 163/80 96 10/12/16 04:50 97.8 67 16 125/61 95 10/12/16 00:00 Room Air 10/11/16 23:58 98.5 78 16 139/70 97 10/11/16 20:35 98.5 80 16 138/75 97 10/11/16 20:00 Room Air 10/11/16 16:00 98.5 64 17 141/66 98 10/11/16 14:00 20 I/O 10/11/16 10/11/16 10/11/16 10/12/16 10/12/16 10/12/16 07:00 15:00 23:00 07:00 15:00 23:00 Intake Total 240 ml 480 ml 960 ml 480 ml Output Total 1250 ml Balance 240 ml -770 ml 960 ml 480 ml Intake Oral 240 ml 480 ml 960 ml 480 ml Output Urine Total 1250 ml # Voids 4 8 3 # Bowel Movements 0 0 2 Result Diagram: 10/12/16 0615 10/12/16 0615 Imaging Last Impressions GI Bleed Scan Nuclear Medicine 10/10/16 0000 Signed Impressions: Service Date/Time: Monday, October 10, 2016 20:13 - CONCLUSION: Normal examination. Michael Farmer MD Objective Remarks GENERAL: NAD, A&Ox3 HEAD: Normocephalic. NECK: Supple, trachea midline. No lymphadenopathy. EYES: No scleral icterus. No injection or drainage. CARDIOVASCULAR: Regular rate and rhythm without murmurs, gallops, or rubs. RESPIRATORY: Breath sounds equal bilaterally. No accessory muscle use. GASTROINTESTINAL: Abdomen soft, non-tender, nondistended. MUSCULOSKELETAL: No cyanosis, or edema. SKIN: Warm and dry. NEURO: No focal neurological deficitis. Procedures Colonoscopy on Medications and IVs Current Medications Medications (Trade) Dose Ordered Sig/Jeffry Route Start Time Stop Time Status Last Admin (NS Flush) 2 ml UNSCH PRN IV FLUSH 10/05/16 23:15 (NS Flush) 2 ml BID IV FLUSH 10/06/16 09:00 10/12/16 08:21 (Narcan Inj) 0.4 mg UNSCH PRN IV 10/05/16 23:15 (Vasotec Inj) 1.25 mg Q8H PRN IV PUSH 10/06/16 10:30 (Protonix Inj) 40 mg DAILY IV PUSH 10/06/16 10:30 10/12/16 08:21 (Zofran Inj) 4 mg Q6H PRN IVP 10/06/16 10:30 (Tylenol) 650 mg Q6H PRN PO 10/06/16 10:30 ([place] 5-325 Mg) 1 tab Q6H PRN PO 10/06/16 10:30 10/12/16 08:22 (Morphine Inj) 2 mg Q3H PRN IV 10/06/16 10:30 10/10/16 20:27 (Miralax) 17 gm BID PO 10/12/16 21:00 A/P Problem List: (1) GI bleed ICD Code: K92.2 Status: Acute Assessment and Plan 89-year-old female admitted for GI bleed. Hypertension and atrial fibrillation have remained stable. Status post transfusion. Following hemoglobin levels. Status post colonoscopy GI bleed Status post blood transfusion 5 Holding patient's Coumadin. Hemoglobin/hematocrit is 10.8/32.2 respectively Follow hemoglobin in the a.m. Status post colonoscopy colon polyp removed, no active bleeding, severe diverticulitis in the sigmoid colon where most of the blood was located. Hypertension Currently well controlled Follow blood pressures Resume losartan and amlodipine at discharge Atrial fibrillation Coumadin on hold secondary to GI bleed Patient will have procedure to attempt and stop her atrial fibrillation, and [place], rather than resume Coumadin Patient has spoke with her academic support coordinator in [place] about this No need to follow INR further DVT prophylaxis SCDs Discharge Planning Anticipate discharge on Problem Qualifiers (1) GI bleed: Qualified Code: K92.2 - Gastrointestinal hemorrhage, unspecified gastrointestinal hemorrhage type Felipe Mckeon MD R2 Oct 12, 2016 13:54
[2016-10-12 16:03] VITALS: BP 141/68; PULSE 72; RESP 18; TEMP 97.9; O2SAT 98
[2016-10-12 19:02] LABS: BICARBONATE 26.3 MEQ/L (21.0-32.0); POTASSIUM 3.3 MEQ/L (3.5-5.1)
[2016-10-12 20:08] VITALS: PULSE 86
[2016-10-12 20:12] VITALS: BP 113/61; PULSE 90; RESP 18; TEMP 98.2; O2SAT 98
[2016-10-12 20:17] LABS: HEMATOCRIT 33.1 % (35.0-46.0); MEAN CELL VOLUME 86.7 FL (80.0-100.0); MEAN CORPUSCULAR HGB CONC 33.5 % (32.0-36.0); PLATELET COUNT 197 TH/MM3 (150-450); RED BLOOD COUNT 3.82 MIL/MM3 (4.00-5.30); RED CELL DISTRIBUTION WIDTH 20.8 % (11.6-17.2); REVIEW FLAG FINAL; WHITE BLOOD COUNT 5.2 TH/MM3 (4.0-11.0)
[2016-10-12] MEDS: POLYETHYLENE GLYCOL 17 GM PKG PO SCH (20:25)
--- NOTE | 2016-10-12 20:55 | MR ---
cc: CATHY LEONARD MD,FELIPE Patiño MD DATE: 10/12/2016 PROCEDURE Colonoscopy with biopsy. INDICATION Lower GI bleeding. REFERRING PHYSICIAN: Dr. Felipe Mckeon. DESCRIPTION OF PROCEDURE: After informed consent was obtained the patient was placed in left side down position. She was sedated by the anesthesia service. After adequate sedation was achieved, the digital rectal examination was performed and it was normal. The Pentax video pediatric colonoscope was inserted in the anal canal and advanced to the colon region to the base of the cecum. It was then slowly withdrawn examining the mucosal surfaces carefully. There was a tiny polyp in the base of the cecum that was plugged off with cold forceps technique. The scope was then withdrawn through the colon washing carefully and examining carefully. A retroflex examination was performed in the rectum. The scope was straightened and pulled through the anal canal and the procedure was terminated. She tolerated the procedure well and was returned to the recovery area in good condition. FINDINGS: 1. In the cecum there was a diminutive polyp that was removed with cold forceps. 2. In the right colon and transverse colon there was no blood present and there was mild diverticulosis present there. 3. In the left side of the colon, there were blood and clots as well as stool balls from diverticulosis. This was all washed as carefully as possible and examined as carefully as possible. There was red blood but there was no active bleeding seen and it probably is old blood. No actively bleeding lesion was seen. At the sigmoid colon, there was severe diverticulosis and that is where most of the blood and clots were located. 4. The rectum was normal. IMPRESSION: 1. No active bleeding was seen. 2. Diminutive polyp removed from the cecum. 3. Severe sigmoid diverticulosis with bleeding almost certainly from the sigmoid colon. RECOMMENDATIONS: 1. She may start a regular diet. 2. She should continue on MiraLax 17 grams b.i.d. until discharge and then after that she should take MiraLax 17 grams daily. 3. Start Metamucil one tablespoon daily at the time of discharge. 4. Monitor H&H in the next 24 hours. If no further overt bleeding, I believe it is safe to discharge her home. Continue proton pump inhibitor. Cathy Leonard MD [facility] /12:27 PM /8:39 PM
[2016-10-13 00:23] VITALS: BP 137/61; PULSE 75; RESP 18; TEMP 97.5; O2SAT 97
[2016-10-13] MEDS: ACETAMINOPHEN/HYDROcodone 325 MG/5 MG TAB PO PRN ×2 (00:23→09:03)
[2016-10-13 04:30] VITALS: BP 125/63; PULSE 65; RESP 18; TEMP 97.8; O2SAT 97
[2016-10-13 06:18] LABS: HEMATOCRIT 32.5 % (35.0-46.0); MEAN CELL VOLUME 87.7 FL (80.0-100.0); MEAN CORPUSCULAR HEMOGLOBIN 28.9 PG (27.0-34.0); MEAN CORPUSCULAR HGB CONC 32.9 % (32.0-36.0); PLATELET COUNT 195 TH/MM3 (150-450); RED BLOOD COUNT 3.71 MIL/MM3 (4.00-5.30); RED CELL DISTRIBUTION WIDTH 20.5 % (11.6-17.2); REVIEW FLAG FINAL; WHITE BLOOD COUNT 5.7 TH/MM3 (4.0-11.0)
[2016-10-13 06:50] LABS: BICARBONATE 26.8 MEQ/L (21.0-32.0); POTASSIUM 3.4 MEQ/L (3.5-5.1)
[2016-10-13 08:00] VITALS: BP 150/70; PULSE 74; RESP 20; TEMP 98.8; O2SAT 97
[2016-10-13 08:30] VITALS: PULSE 60
--- NOTE | 2016-10-13 09:00 | HHI.PR ---
Subjective Remarks This is a pleasant 89 y/o Female admitted due to GI bleed, status post Colonoscopy, polyp removed, considered as Diverticular bleed, and if no further GI bleed to be discharged in the afternoon of October 14. Patient stable seen in her bedroom, no new issues, discussed with GI specialist SYSTEMS SPECIALIST Miss Poonam García the patient developed rectal bleed, likely diverticular, no further episodes of GI bleed, tolerating regular diet, Hemoglobin improved. Okay to discharge Home as per GI specialist standpoint, Regular Diet, avoid nuts , seeds, popcorn, Miralax 17 grams daily Copy chart to have the patient take with her. GI follow on arrival home. Objective Vital Signs Date Time Temp Pulse Resp B/P Pulse Ox O2 Delivery O2 Flow Rate FiO2 10/13/16 04:30 Room Air 10/13/16 04:30 97.8 65 18 125/63 97 10/13/16 00:23 97.5 75 18 137/61 97 10/13/16 00:23 Room Air 10/12/16 20:12 98.2 90 18 113/61 98 10/12/16 20:12 Room Air 10/12/16 20:08 86 10/12/16 16:03 97.9 72 18 141/68 98 10/12/16 12:15 57 18 128/58 99 10/12/16 12:00 97.7 53 18 112/53 100 I/O 10/12/16 10/12/16 10/12/16 10/13/16 10/13/16 10/13/16 07:00 15:00 23:00 07:00 15:00 23:00 Intake Total 480 ml 280 ml 570 ml Balance 480 ml 280 ml 570 ml Intake Oral 480 ml 280 ml 570 ml # Voids 3 4 3 # Bowel Movements 2 1 Result Diagram: 10/13/16 0506 10/13/16 0506 Imaging Last Impressions GI Bleed Scan Nuclear Medicine 10/10/16 0000 Signed Impressions: Service Date/Time: Monday, October 10, 2016 20:13 - CONCLUSION: Normal examination. Michael Farmer MD Procedures Colonoscopy on Other Results Laboratory Tests Test 10/09/16 10/10/16 10/10/16 10/13/16 04:30 09:07 19:34 05:06 Antibody Screen NEGATIVE Prothrombin Time 10.9 SEC Prothromb Time International 1.0 RATIO Ratio Blood Type O POSITIVE Crossmatch Leukocyte-Reduced Red Blood Cells Blood Bank Comment White Blood Count 5.7 TH/MM3 Red Blood Count 3.71 MIL/MM3 Hemoglobin 10.7 GM/DL Hematocrit 32.5 % Mean Corpuscular Volume 87.7 FL Mean Corpuscular Hemoglobin 28.9 PG Mean Corpuscular Hemoglobin 32.9 % Concent Red Cell Distribution Width 20.5 % Platelet Count 195 TH/MM3 Mean Platelet Volume 8.8 FL Sodium Level 140 MEQ/L Potassium Level 3.4 MEQ/L Chloride Level 106 MEQ/L Carbon Dioxide Level 26.8 MEQ/L Anion Gap 7 MEQ/L Blood Urea Nitrogen 9 MG/DL Creatinine 0.44 MG/DL Estimat Glomerular Filtration 135 ML/MIN Rate Random Glucose 79 MG/DL Calcium Level 8.4 MG/DL Objective Remarks GENERAL: NAD, A&Ox3 HEAD: Normocephalic. NECK: Supple, trachea midline. No lymphadenopathy. EYES: No scleral icterus. No injection or drainage. CARDIOVASCULAR: Regular rate and rhythm without murmurs, gallops, or rubs. RESPIRATORY: Breath sounds equal bilaterally. No accessory muscle use. GASTROINTESTINAL: Abdomen soft, non-tender, nondistended. MUSCULOSKELETAL: No cyanosis, or edema. SKIN: Warm and dry. NEURO: No focal neurological deficitis. Medications and IVs Current Medications Medications (Trade) Dose Ordered Sig/Jeffry Route Start Time Stop Time Status Last Admin (NS Flush) 2 ml UNSCH PRN IV FLUSH 10/05/16 23:15 (NS Flush) 2 ml BID IV FLUSH 10/06/16 09:00 10/12/16 20:25 (Narcan Inj) 0.4 mg UNSCH PRN IV 10/05/16 23:15 (Vasotec Inj) 1.25 mg Q8H PRN IV PUSH 10/06/16 10:30 (Protonix Inj) 40 mg DAILY IV PUSH 10/06/16 10:30 10/12/16 08:21 (Zofran Inj) 4 mg Q6H PRN IVP 10/06/16 10:30 (Tylenol) 650 mg Q6H PRN PO 10/06/16 10:30 ([place] 5-325 Mg) 1 tab Q6H PRN PO 10/06/16 10:30 10/13/16 00:23 (Morphine Inj) 2 mg Q3H PRN IV 10/06/16 10:30 10/10/16 20:27 (Miralax) 17 gm BID PO 10/12/16 21:00 10/12/16 20:25 A/P Assessment and Plan 89-year-old female admitted for GI bleed. Hypertension and atrial fibrillation have remained stable. Status post transfusion. Following hemoglobin levels. Status post colonoscopy GI bleed Status post blood transfusion 5 Holding patient's Coumadin. Hemoglobin/hematocrit is 10.8/32.2 respectively Follow hemoglobin in the a.m. Status post colonoscopy colon polyp removed, no active bleeding, severe diverticulitis in the sigmoid colon where most of the blood was located. discussed with GI specialist BLANCA García the patient developed rectal bleed, likely diverticular, no further episodes of GI bleed, tolerating regular diet, Hemoglobin improved. Okay to discharge Home as per GI specialist standpoint, Regular Diet, avoid nuts , seeds, popcorn, Miralax 17 grams daily Copy chart to have the patient take with her. GI follow on arrival home. Hypertension Mild uncontrol but she had Hypotensive episodes on no antihypertensives will continue to hold her antihypertensives until is re assessed by her PCP on arrival she was recommended to follow with her PCP to re start or titrate home anti hypertensives on arrival. Atrial fibrillation Coumadin on hold secondary to GI bleed Patient will have procedure to attempt and stop her atrial fibrillation, and [place], rather than resume Coumadin Patient has spoke with her contract accountant in [place] about this No need to follow INR further DVT prophylaxis SCDs Discharge Planning Home today. Discussed with patient nurse Miss Solano and GI specialist BLANCA, all questions answered to the best of my abilities discussed with [employer] Center Display Builder for Chart print. Discharge Planning Today. Chan Jenkins MD Oct 13, 2016 09:00
[2016-10-13] MEDS: POLYETHYLENE GLYCOL 17 GM PKG PO SCH (09:03)
[2016-10-13] MEDS: SODIUM CHLORIDE 0.9% FLUSH 10 ML FLUSH IV FLUSH SCH (09:03)
[2016-10-13] MEDS: PANTOPRAZOLE SODIUM 40 MG VIAL IV PUSH SCH (09:03)
--- NOTE | 2016-10-13 11:31 | HHI.GIFU ---
Subjective Remarks Resting in bed. No further bleeding yesterday or today. Tolerating regular diet. No n/v. No abdominal pain. States she has a flight for tonight around 11pm to fly back home to [place] and so if she will be discharged, it will need to be soon so she can get situated and to [place] for her flight and that she will need a copy of her chart to take with her. Objective Vitals I&O Vital Signs Date Time Temp Pulse Resp B/P Pulse Ox O2 Delivery O2 Flow Rate FiO2 10/13/16 08:30 Room Air 10/13/16 08:30 60 10/13/16 08:00 98.8 74 20 150/70 97 10/13/16 04:30 Room Air 10/13/16 04:30 97.8 65 18 125/63 97 10/13/16 00:23 97.5 75 18 137/61 97 10/13/16 00:23 Room Air 10/12/16 20:12 98.2 90 18 113/61 98 10/12/16 20:12 Room Air 10/12/16 20:08 86 10/12/16 16:03 97.9 72 18 141/68 98 10/12/16 12:15 57 18 128/58 99 10/12/16 12:00 97.7 53 18 112/53 100 I/O 10/12/16 10/12/16 10/12/16 10/13/16 10/13/16 10/13/16 07:00 15:00 23:00 07:00 15:00 23:00 Intake Total 480 ml 280 ml 570 ml Balance 480 ml 280 ml 570 ml Intake Oral 480 ml 280 ml 570 ml # Voids 3 4 3 # Bowel Movements 2 1 Laboratory Laboratory Tests Test 10/12/16 10/13/16 17:34 05:06 White Blood Count 5.2 5.7 Red Blood Count 3.82 3.71 Hemoglobin 11.1 10.7 Hematocrit 33.1 32.5 Mean Corpuscular Volume 86.7 87.7 Mean Corpuscular Hemoglobin 29.0 28.9 Mean Corpuscular Hemoglobin 33.5 32.9 Concent Red Cell Distribution Width 20.8 20.5 Platelet Count 197 195 Mean Platelet Volume 8.9 8.8 Sodium Level 139 140 Potassium Level 3.3 3.4 Chloride Level 104 106 Carbon Dioxide Level 26.3 26.8 Anion Gap 9 7 Blood Urea Nitrogen 9 9 Creatinine 0.51 0.44 Estimat Glomerular Filtration 114 135 Rate Random Glucose 98 79 Calcium Level 8.6 8.4 Imaging Last Impressions GI Bleed Scan Nuclear Medicine 10/10/16 0000 Signed Impressions: Service Date/Time: Monday, October 10, 2016 20:13 - CONCLUSION: Normal examination. Michael Farmer MD Physical Exam HEENT: Normocephalic; atraumatic; no jaundice CHEST: CTA CARDIAC: RRR. ABDOMEN: +BS, soft, nondistended, nontender EXTREMITIES: No clubbing, cyanosis, or edema. SKIN: Normal; no rash; no jaundice. SUPERVISOR ENGINE REPAIR: No focal deficits; alert and oriented times three. Assessment and Plan Plan ASSESSMENT: - Rectal bleeding, likely diverticular. Pt visiting from [place] to be inducted into the [employer] [facility]. She has a hx of diverticular bleeding about 4-5 times in the past, usually about once every 2 years, last episode was 1 year ago. She had a colonoscopy one year ago and reports this revealed diverticulosis, no polyps and she was told that her rectal bleeding was a diverticular bleed. She started having rectal bleeding on Tuesday and has had intermittent bleeding since that time. She had a large amount of red blood with blood clots independent from stool. No n/v, no abdominal pain. She would like to try to avoid a colonoscopy if possible. She does have a history of atrial fibrillation and takes Coumadin at home, but this is now on hold. She also occasionally takes Aleve for arthritic pain. S/P Miralax on 10/06 resulting in multiple bowel movements. On pt had GIB. Her H/H dropped on 10/08 to 6.6/19.8. Patient was given vitamin K, 2 units of fresh frozen plasma and 2 units of RBCs. S/P Colonoscopy (10/12/16)----> no active bleeding was seen, diminutive polyp removed from the cecum, severe sigmoid diverticulosis with bleeding almost certainly from the sigmoid colon. She has not had any further bleeding x 48 hours. Her HH has remained stable and is currently at 10.7/32.5. Tolerating regular diet. - Anemia secondary to blood loss. S/P 5 units PRBC, 1 units FFP. HH improved - Hx atrial fibrillation, s/p ablation, on Coumadin- currently being hold. Pt contacted her family centered specialist in [place] and he told her not to go back on the Coumadin, that he was keeping her off of it. INR 1.2 (10/09) - HTN per attending. PLAN: - Okay to d/c home from GI standpoint - Regular diet- avoid nuts, seeds, popcorn - Miralax 17gram po daily - Copy chart to have patient take with her - FU GI on arrival back home - If further bleeding, then go to nearest ER - Pt seen and examined by Dr. Leonard and myself and this note is written on his behalf Poonam García Oct 13, 2016 11:31
[2016-10-13 12:00] VITALS: BP 116/56; PULSE 70; RESP 22; TEMP 99; O2SAT 95
[2016-10-13] MEDS ORDERED: PROT40TA PO (12:35)
[2016-10-13] MEDS ORDERED: HYDR-3516 PO (12:35)
[2016-10-13] MEDS ORDERED: META28.34 PO (12:35)
--- NOTE | 2016-10-13 12:43 | HHI.DS ---
Discharge Summary Admission Date Oct 05, 2016 at 22:57 Discharge Date: Oct 13, 2016 Admitting Diagnosis GI bleed (1) GI bleed ICD Code: K92.2 Diagnosis: Principal Procedures Colonoscopy on Brief History - From Admission Written by Alyx Aragon, acting as scribe for Dr. Lutz on 10/06/16 at 04:02. Here from [place] to be inducted into the [employer] [facility]. Has had rectal bleeding since Tuesday - multiple episodes Tuesday and Tuesday but it seemed to resolve Tuesday morning. Flew in Tuesday night and was doing well on Thursday 10/05 until she went to an [employer] banquet- when she stood up, her grandson noticed she had bled all over her skirt and the soaked the upholstery of the chair she was sitting on- a very large amount of dark and thick red blood. She is anticoagulated with Coumadin for atrial fibrillation with INR of 2.0 in ED. The last time she had similar bleeding was due to diverticular bleed. Not sure how bleeding was stopped. She has had three episodes of this. Has had bleeding on Xarelto, Eliquis, and Coumadin which is given for atrial fibrillation. The patient also has a PPM. She had some dizziness but no other symptoms other than the bleeding. . CBC/BMP: 10/13/16 0506 10/13/16 0506 Significant Findings Laboratory Tests Test 10/10/16 10/11/16 10/11/16 10/12/16 18:40 06:25 18:46 06:15 Hemoglobin 8.8 GM/DL 10.4 GM/DL 11.1 GM/DL 10.8 GM/DL (11.6-15.3) (11.6-15.3) (11.6-15.3) (11.6-15.3) Hematocrit 26.3 % 31.1 % 33.2 % 32.2 % (35.0-46.0) (35.0-46.0) (35.0-46.0) (35.0-46.0) Red Blood Count 3.73 MIL/MM3 (4.00-5.30) Red Cell Distribution Width 20.6 % (11.6-17.2) Potassium Level 2.7 MEQ/L (3.5-5.1) Creatinine 0.34 MG/DL (0.50-1.00) Random Glucose 72 MG/DL (74-106) Calcium Level 8.3 MG/DL (8.5-10.1) Test 10/12/16 10/13/16 17:34 05:06 Red Blood Count 3.82 MIL/MM3 3.71 MIL/MM3 (4.00-5.30) (4.00-5.30) Hemoglobin 11.1 GM/DL 10.7 GM/DL (11.6-15.3) (11.6-15.3) Hematocrit 33.1 % 32.5 % (35.0-46.0) (35.0-46.0) Red Cell Distribution Width 20.8 % 20.5 % (11.6-17.2) (11.6-17.2) Potassium Level 3.3 MEQ/L 3.4 MEQ/L (3.5-5.1) (3.5-5.1) Creatinine 0.44 MG/DL (0.50-1.00) Calcium Level 8.4 MG/DL (8.5-10.1) Imaging Last Impressions GI Bleed Scan Nuclear Medicine 10/10/16 0000 Signed Impressions: Service Date/Time: Monday, October 10, 2016 20:13 - CONCLUSION: Normal examination. Michael Farmer MD PE at Discharge GENERAL: NAD, A&Ox3 HEAD: Normocephalic. NECK: Supple, trachea midline. No lymphadenopathy. EYES: No scleral icterus. No injection or drainage. CARDIOVASCULAR: Regular rate and rhythm without murmurs, gallops, or rubs. RESPIRATORY: Breath sounds equal bilaterally. No accessory muscle use. GASTROINTESTINAL: Abdomen soft, non-tender, nondistended. MUSCULOSKELETAL: No cyanosis, or edema. SKIN: Warm and dry. NEURO: No focal neurological deficitis. Hospital Course This is a pleasant 89 y/o Female admitted due to GI bleed, status post Colonoscopy, polyp removed, considered as Diverticular bleed, and if no further GI bleed to be discharged in the afternoon of October 14. Patient stable seen in her bedroom, no new issues, discussed with GI specialist [employer] Miss Poonam García the patient developed rectal bleed, likely diverticular, no further episodes of GI bleed, tolerating regular diet, Hemoglobin improved. Okay to discharge Home as per GI specialist standpoint, Regular Diet, avoid nuts , seeds, popcorn, Miralax 17 grams daily Copy chart to have the patient take with her. GI follow on arrival home. Assessment and Plan 89-year-old female admitted for GI bleed. Hypertension and atrial fibrillation have remained stable. Status post transfusion. Following hemoglobin levels. Status post colonoscopy GI bleed Status post blood transfusion 5 Holding patient's Coumadin. Hemoglobin/hematocrit is 10.8/32.2 respectively Follow hemoglobin in the a.m. Status post colonoscopy colon polyp removed, no active bleeding, severe diverticulitis in the sigmoid colon where most of the blood was located. discussed with GI specialist BLANCA Miss Poonam García the patient developed rectal bleed, likely diverticular, no further episodes of GI bleed, tolerating regular diet, Hemoglobin improved. Okay to discharge Home as per GI specialist standpoint, Regular Diet, avoid nuts , seeds, popcorn, Miralax 17 grams daily Copy chart to have the patient take with her. GI follow on arrival home. Hypertension Mild uncontrol but she had Hypotensive episodes on no antihypertensives will continue to hold her antihypertensives until is re assessed by her PCP on arrival she was recommended to follow with her PCP to re start or titrate home anti hypertensives on arrival. 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 Discussed with patient nurse Miss Solano and GI specialist BLANCA, all questions answered to the best of my abilities discussed with Stone Rougher for Chart print. Discharge Planning Today. Pt Condition on Discharge: Good Discharge Disposition: Discharge Home Discharge Time: > 30 minutes Discharge Instructions DIET: Follow Instructions for: As Tolerated, No Restrictions Activities you can perform: Regular-No Restrictions Chan Jenkins MD Oct 13, 2016 12:43
[2016-10-24] MEDS ORDERED: POLYETHYLENE GLYCOL 17 GM PKG PO ONE (16:00)
== END 2016-10-13 14:16 | disposition home or self-care (01) | DRG 378 ==
LOC: NEPE 20:50 → NEDA 22:57 → N04B 10-06 00:02
PROVIDERS: ADMIT Internal Medicine; ATTEND Internal Medicine
PROC: 30233N1 Transfusion of Nonautologous Red Blood Cells into Peripheral Vein, Percutaneous Approach (ICD-10-PCS; 2016-10-06)
PROC: 30233K1 Transfusion of Nonautologous Frozen Plasma into Peripheral Vein, Percutaneous Approach (ICD-10-PCS; 2016-10-08)
PROC: 0DBH8ZX Excision of Cecum, Via Natural or Artificial Opening Endoscopic, Diagnostic (ICD-10-PCS; principal; 2016-10-12 11:05)
DX: K57.31 Diverticulosis of large intestine without perforation or abscess with bleeding (principal); D62 Acute posthemorrhagic anemia; I48.91 Unspecified atrial fibrillation; Z79.01 Long term (current) use of anticoagulants; D12.0 Benign neoplasm of cecum; I10 Essential (primary) hypertension; Z95.0 Presence of cardiac pacemaker; Z96.653 Presence of artificial knee joint, bilateral; Z87.891 Personal history of nicotine dependence
CPT/HCPCS: 36430; 78278; 80048; 80053; 83690; 85014; 85018; 85025; 85027; 85610; 85730; 86850; 86900; 86901; 86920; 86927; 88305; 93005; A9560; C9113; J1200; J1940; J2270; J2370; J7030; J7050; P9016; P9017